=== PATIENT | male | born 1985 | race Caucasian/White ===

== ENCOUNTER → 2018-06-15 08:07 | Outpatient (CLI) | payer BC, SELFPAY ==
[2018-06-15 09:11] LABS: INR 3.8 (1.0-3.5); Prothrombin Time 35.7 sec (9.3-10.8)
== END ==
PROVIDERS: PCP Nurse Practitioner Family; Visit Provider Nurse Practitioner Family
DX: Z79.01 Long term (current) use of anticoagulants (principal)
CPT/HCPCS: 36415; 85610

== ENCOUNTER 2020-08-25 16:06 | Outpatient (REF) | payer BC, SELFPAY ==
[2020-08-25 19:36] LABS: Anion Gap 5.4 mmol/L (3-11); BUN 14 mg/dL (7-18); CO2 29.6 mmol/L (21.0-32.0); CREATININE 0.87 mg/dL (0.70-1.30); Calcium 9.1 mg/dL (8.5-10.1); Calculated LDL 139 mg/dL (<100); Chloride 103 mmol/L (98-107); Cholesterol 205 mg/dL (<200); Glucose 97 mg/dL (74-106); HDL Cholesterol 42 mg/dL (40-60); Potassium 4.7 mmol/L (3.5-5.1); Sodium 138 mmol/L (136-145); Triglyceride 120 mg/dL (<150)
== END 2020-08-25 16:26 ==
LOC: NCHCN 16:06
PROVIDERS: PCP Nurse Practitioner Family; Visit Provider Family Medicine
DX: Z00.00 Encounter for general adult medical examination without abnormal findings (principal); I42.0 Dilated cardiomyopathy; Z95.2 Presence of prosthetic heart valve; G43.909 Migraine, unspecified, not intractable, without status migrainosus
CPT/HCPCS: 80048; 80061

== ENCOUNTER 2022-06-14 17:27 | Outpatient (REF) | payer OTHER, SELFPAY ==
[2022-06-14 18:50] LABS: HCT 46.2 % (40.0-50.0); HGB 15.7 g/dL (13.5-17.5); MCH 30.7 pg (27.0-33.0); MCV 90 fL (80-95); Platelet Count 274 10^3/uL (130-400); RBC 5.11 10^6/uL (4.36-5.78); RDW 13.8 % (11.8-14.1); RDW-SD 46.2 fL; WBC 6.71 10^3/uL (4.4-10.8)
[2022-06-14 19:08] LABS: Anion Gap 9.3 mmol/L (3-11); BUN 11 mg/dL (7-18); CO2 28.7 mmol/L (21.0-32.0); CREATININE 0.9 mg/dL (0.70-1.30); Calcium 9.1 mg/dL (8.5-10.1); Chloride 102 mmol/L (98-107); Glucose 96 mg/dL (74-106); Potassium 4.4 mmol/L (3.5-5.1); Sodium 140 mmol/L (136-145)
== END 2022-06-14 17:28 | disposition home or self-care (01) ==
LOC: NCHCN 17:27
PROVIDERS: PCP Nurse Practitioner Family; Visit Provider Family Medicine
DX: Z00.00 Encounter for general adult medical examination without abnormal findings (principal); I42.0 Dilated cardiomyopathy; Z79.01 Long term (current) use of anticoagulants
CPT/HCPCS: 80048; 85027

== ENCOUNTER 2022-06-28 01:04 | Outpatient (CLI) | payer OTHER, SELFPAY ==
--- NOTE | 2022-06-28 | DI.RAD_ITS ---
Exam(s) XR LUMBAR SPINE COMPLETE EXAM: XR LUMBAR SPINE COMPLETE CLINICAL HISTORY: BACK PAIN WITH RADICULOPATHY, M54.18. TECHNIQUE: 2D digital imaging was performed of the lumbar spine. Five images were obtained. AP, la teral, right oblique, left oblique and L5-S1 spot views were obtained. COMPARISON: No exams were available for comparison FINDINGS: BONES: No fracture or destructive lesion. Vertebral bodies are unremarkable. Mild degenerative change s of the L5-S1 facets. DISKS: Mild narrowing of the L5-S1 disc space. ALIGNMENT: Lumbar spinal alignment is within normal limits. No spondylolysis or spondylolisthesis. SOFT TISSUE: Normal. IMPRESSION: Mild degenerative changes at L5-S1. DATA REPOSITORY: RADIATION DOSE DELIVERED:
== END 2022-06-28 01:24 ==
PROVIDERS: PCP Nurse Practitioner Family; Visit Provider Family Medicine
DX: M47.817 Spondylosis without myelopathy or radiculopathy, lumbosacral region (principal)
CPT/HCPCS: 72110

== ENCOUNTER → 2024-04-18 00:19 | Outpatient (CLI) | payer OTHER, SELFPAY ==
--- NOTE | 2024-04-18 07:30 | DI.US_ITS ---
APPROVED REPORT EXAM: Comprehensive 2D, Doppler, and color-flow Echocardiogram Patient Location: Out-Patient Production Engineer Track: Maria Antonia Samuels RDCS (AE) Indications: Prosthetic heart valve in situ, h/o cardiomyopathy Other Information Study Quality: Adequate Conclusion Normal left ventricular wall thickness and chamber size. Ejection fraction is 55 to 60%. Wall motio n is normal Normal right ventricular size and function Both atria are normal in size There is a prosthetic aortic valve. Peak gradient is 30, mean 17 mmHg. Trace aortic regurgitation Ascending aorta measures 3.59 cm Wall motion Left Ventricle The left ventricle is normal size. The left ventricular systolic function is normal. The left ventric ular ejection fraction is within the normal range. There is normal left ventricular wall thickness. T here is normal LV segmental wall motion. There is no ventricular septal defect visualized. LVEF is 56 %. Right Ventricle The right ventricle is normal size. The right ventricular systolic function is normal. Atria The left atrium size is normal. The right atrium size is normal. The interatrial septum is intact wit h no evidence for an atrial septal defect. Aortic Valve Peak gradient is 30, mean 17 mmHg. Trace aortic regurgitation. Prosthetic aortic valve is normal in a ppearance. Mitral Valve The mitral valve is normal in structure. No evidence of mitral valve stenosis. Trace mitral regurgita tion. Tricuspid Valve The tricuspid valve is normal in structure. There is no tricuspid valve stenosis. Trace tricuspid reg urgitation. The RVSP is 14.2_ mmHg. Pulmonic Valve The pulmonary valve is normal in structure. There is no pulmonic valvular stenosis. Trace pulmonic re gurgitation. Great Vessels The aortic root is normal in size. The ascending aorta is mildly dilated. Aortic arch is normal in ca liber. IVC is normal in size and collapses >50% with inspiration. Pericardium There is no pericardial effusion. 2D Dimensions IVSD d PLAX 0.65 cm M: 0.6-1.2 Ao Root d 3.08 cm M: 3.1 - 3.7 LVPW d PLAX 0.68 cm M: 0.6 - 1.2 Ao Asc Diam d 3.59 cm M: 2.6 - 3.4 LVID d PLAX 5.64 cm M: 4.2 - 5.8 LVDs 3.95 cm M: 2.5 - 4.0 LV EF Teichholz 56.4 % FS 29.91 % LV EDV (Teich) 156.0 mL LV ESV (Teich) 68.0 mL Auto EF LV EDV A4C 127.3 mL LV EDV A2C 156.0 mL LV EDV BP 141.8 mL LV ESV A4C 57.5 mL LV ESV A2C 65.9 mL LV ESV BP 62.1 mL LVEF(%) A4C 54.9 % LVEF(%) A2C 57.8 % LVEF(%) BP 56.2 % LV SV A4C 69.9 ml LV SV A2C 90.2 ml LV SV BP 79.7 ml LV CO A4C 4.9 L/min LV CO A2C 6.3 L/min LV CO BP 5.6 L/min HR A4C 70.04 BPM HR A2C 70.04 BPM LV EDV Index (BP) LA Volume LA Length A4C 5.1 cm LA Length A2C 5.0 cm LA Area A4C s 17.01 cm2 LA Area A2C s 18.75 cm2 LA Vol A4C A-L 48.33 mL LA Vol A2C A-L 59.28 mL LA Vol Biplane A-L 53.8 mL LA Vol/BSA A4C A-L LA Vol/BSA A2C A-L LA Vol/BSA BP A-L 26.6 mL/m2 LA Vol A4C MOD 44.1 mL LA Vol A2C MOD 56.5 mL LA Vol BP MOD 49.9 mL RA Volume RA Area A4C 16.3 cm2 RA ESV A4C (A-L) 46.9mL RA Vol/BSA A4C A-L RA Length A4C 4.8 cm RA ESV A4C (MOD) 44.7mL LV Diastology MV E' medial 0.120 (>0.07 m/s) MV E Vmax 0.67 (0.4-1.3 m/s) MV E/E' MED 5.53 (<14) MV A Vmax 0.65 (0.4-1.3 m/s) E/A Ratio 1.0 Aortic Valve AoV Vmax 2.73 m/s LVOT Vmax 0.52 m/s AoV Peak Grad 29.8 mmHg LVOT Peak Grad 1.1 mmHg AoV Area (Vmax) 0.61 cm2 LVOT VTI 0.132 m AoV VTI 0.629 m LVOT Mean Grad 0.7 mmHg AoV Mean Braeden. 1.95 m/s LVOT SV 42.08 mL AoV Mean Grad 17.6 mmHg LVOT Diam s 2.00 cm AoV Area (VTI) 0.67 cm2 Velocity Ratio 0.19 Mitral Valve MV DT 175 (160-240 msec) MV Vmax TIPS 0.56 m/s MV Mean Grad 0.6 (<2mmHg) MV VTI 0.193 m Pulmonary Valve PV Vmax 1.31 (0.5-1.5 m/s) RVOT Vmax 0.71 m/s PV Peak Grad 6.9 mmHg RVOT Peak Gr. 2.0 mmHg PV Mean Braeden 0.86 m/s RVOT VTI 0.153 m PV Mean Grad 3.5 mmHg RVOT Mean Gr. 1.1 mmHg Tricuspid Valve RA Pressure 3.00 mmHg TR Vmax 1.67 m/s TV S' 0.09 m/s TR Peak Grad 11.2 mmHg RVSP (TR) 14.2 mmHg
== END ==
PROVIDERS: PCP Family Medicine; Visit Provider Family Medicine
DX: Z95.2 Presence of prosthetic heart valve (principal)
CPT/HCPCS: 93306

== ENCOUNTER 2024-08-16 12:28 | Outpatient (REF) | payer SELFPAY ==
--- OUTSIDE RECORDS SUMMARY | 2024-08-16 12:29 | XMS_ITS | Encounter Summary ---
Author Organization [facility] [place] [address] Care Team Providers Care Technical Architect Name Role Phone Kathy Valera MD Primary Care Provider [phone] Encounter Details Date Type Department Care Team (Late st Contact Info) Description 07/03/2024 Abstract Cardiology at [address] [phone] Varinder Cabrera RN Social History Tobacco Use Types Packs/Day Years Used Date Smoking Tobacco: Never Assessed Sex and Gender Information Value Date Recorded Sex Assigned at Not on file Gender Identity Not on file Sexual Orientation Not on file documented as of this encounter Plan of Treatment Not on file documented as of this encounter Visit Diagnoses Not on filedocumented in this encounter Care Teams Technical Architect Relationship Specialty Start Date End Date Kathy Valera MD [address] [place] [address] PCP - General Family Medicine 03/21/24 documented as of this encounter
--- OUTSIDE RECORDS SUMMARY | 2024-08-16 12:29 | XMS_ITS | Encounter Summary ---
Author Organization [facility] Address [facility] [place] [address] Care Team Providers Care Manager Research Name Role Phone Kathy Valera MD Primary Care Provider [phone] Encounter Details Date Type Department Care Team (Late st Contact Info) Description 07/08/2024 Telephone Cardiology at [address] [phone] Gallo Forbes MD [facility] [place] [address] Social History Tobacco Use Types Packs/Day Years Used Date Smoking Tobacco: Never Assessed Sex and Gender Information Value Date Recorded Sex Assigned at Not on file Gender Identity Not on file Sexual Orientation Not on file documented as of this encounter Miscellaneous Notes * Telephone Encounter - Glendy Galeano RN - 07/08/2024 9:06 AM EDT Images from the original note were not included. [facility] Cardiology Clinic [address] [place] [id number] Abilio was referred to this Cardiology clinic by PCP Kathy Valera. He has history of aortic valve replacement at [facility]. NEW PATIENT appointment was scheduled for today at 8:20 am. Abilio did not show or call. Abilio had not responded to telephonic reminder calls. Abilio was mailed an appointment reminder 3 weeks ago. Notification: Dr. Valera needs to know he did not present to his appointment on 07/08/2024. documented in this encounter Plan of Treatment Not on file documented as of this encounter Visit Diagnoses Not on filedocumented in this encounter Care Teams Manager Research Relationship Specialty Start Date End Date Kathy Valera MD [address] [place] [address] PCP - General Family Medicine 03/21/24 documented as of this encounter
--- OUTSIDE RECORDS SUMMARY | 2024-08-16 12:29 | XMS_ITS | Clinical Summary ---
Author Organization [facility] Address [facility] [place] [address] Care Team Providers Care Chief Engineer Production Name Role Phone Kathy Valera MD Primary Care Provider [phone] Medications Medication Sig Dispensed Refills Start Date End Date Status warfarin (COUMADIN) 5 mg tablet Take 7.5 mg by mouth daily. 08/09/2007 Active SUMATRIPTAN SUCCINATE (IMITREX ORAL) 09/23/2004 Active famotidine (Pepcid) 20 mg tablet Take 20 mg by mouth 2 times daily as needed. Active amoxicillin (Amoxil) 500 mg tablet Take 2,000 mg by mouth once as needed (dental procedure). Active losartan (Cozaar) 50 mg tablet Take 100 mg by mouth daily. Active metoprolol succinate XL (Toprol-XL) 200 mg ER 24 hr tablet Take 200 mg by mouth daily. Active Active Problems Problem Noted Date Diagnosed Date Dilated cardiomyopathy 07/03/2024 Presence of prosthetic heart valve 03/21/2024 Overview (03/21/2024): Aortic valve replacement Encounters Date Type Department Care Team Description 07/08/2024 Telephone Cardiology at [address] [phone] Gallo Forbes MD 07/03/2024 Abstract Cardiology at [address] [phone] Varinder Cabrera RN from Last 3 Months Family History Medical History Relation Comments Cardiomyopathy Father Heart Transplant Father Asthma Mother Arrhythmia Sister 1 Cardiomyopathy Sister 1 No Known Problems Sister 2 No Known Problems Sister 3 No Known Problems Sister 4 Relation Status Comments Father Maternal Grandfather Maternal Grandmother Alive Mother Paternal Grandfather Paternal Grandmother Alive Sister 1 Alive Sister 2 Alive Sister 3 Alive Sister 4 Alive Social History Tobacco Use Types Packs/Day Years Used Date Smoking Tobacco: Never Assessed Sex and Gender Information Value Date Recorded Sex Assigned at Not on file Gender Identity Not on file Sexual Orientation Not on file Plan of Treatment Health Maintenance Due Date Last Done Comments HIV screen 2003 Hepatitis C Screening 2003 Lipid Screening 2003 Hepatitis B vaccine (0-59 yrs) (1) 2004 Tetanus/Diphtheria/Pertussis Vaccines (1 - Tdap) 08/25 Covid-19 Vaccine ( - season) 2024 Influenza (Flu) vaccine (1 o f 1 - Influenza standard series) 06/23/2024 Care Teams Chief Engineer Production Relationship Specialty Start Date End Date Kathy Valera MD [address] [place] [address] PCP - General Family Medicine 03/21/24
--- OUTSIDE RECORDS SUMMARY | 2024-08-16 12:30 | XMS_ITS | Encounter Summary ---
Author Organization [facility] Address [address] [place] [address] Care Team Providers Care Engagement Executive Name Role Phone Kathy Valera MD Primary Care Provider [phone] Reason for Visit * Reason Onset Date Comments Other 03/14/2011 authorization fo r driving vehicle Encounter Details Date Type Department Care Team (Late st Contact Info) Description 03/14/2011 Telephone [facility] Cardiology - [address] [place], [place] [id number] Zee Estrella RN Other (authorization for driving vehicle) Social History Tobacco Use Types Packs/Day Years Used Date Smoking Tobacco: Never Alcohol Use Standard Drinks/Week Comments Not Asked 0 (1 standard drink = 0.6 oz pur e alcohol) Sex and Gender Information Value Date Recorded Sex Assigned at Not on file Gender Identity Not on file Sexual Orientation Not on file documented as of this encounter Miscellaneous Notes * Telephone Encounter - Roseann Carr - 03/17/2011 1436 EDT Left message to patient that letter has been sent. * Telephone Encounter - Zee Estrella RN - 03/14/2011 [address]1 [address]T Fax[address] note from Dr Villalta to [facility] at [facility], fax [phone]. documented in this encounter Plan of Treatment Not on file documented as of this encounter Visit Diagnoses Not on filedocumented in this encounter Care Teams Engagement Executive Relationship Specialty Start Date End Date Berrian, Kathy, MD [address] [place] [id number] PCP - General 12/10/09 documented as of this encounter
--- OUTSIDE RECORDS SUMMARY | 2024-08-16 12:30 | XMS_ITS | Encounter Summary ---
Author Organization [facility] Address [address] [place] [address] Care Team Providers Care Desktop Publishing Specialist Name Role Phone Kathy Valera MD Primary Care Provider Encounter Details Date Type Department Care Team (Late st Contact Info) Description 03/05/2010 Abstract [facility] Cardiology - [address] [place] [address] Kathy Valera MD [address] [place], [place] [id number] S/P aortic valve replacement Social History Tobacco Use Types Packs/Day Years Used Date Smoking Tobacco: Never Assessed Sex and Gender Information Value Date Recorded Sex Assigned at Not on file Gender Identity Not on file Sexual Orientation Not on file documented as of this encounter Plan of Treatment Not on file documented as of this encounter Visit Diagnoses Diagnosis S/P aortic valve replacement Heart valve replaced by other means documented in this encounter Historical Medications * This list may reflect changes made after this encounter. Medication Sig Dispensed Refills Start Date End Date WARFARIN SODIUM (COUMADIN ORAL) Take by mouth. As directed metoprolol XL (TOPROL-XL) 50 mg tablet Take 50 mg by mouth daily. 03/09/2010 lisinopril (PRINIVIL, ZESTRIL) 10 mg tablet Take 10 mg by mouth daily. 06/22/2010 added in this encounter Care Teams Desktop Publishing Specialist Relationship Specialty Start Date End Date Kathy Valera MD [address] [place], [place] [id number] PCP - General 12/10/09 documented as of this encounter
--- OUTSIDE RECORDS SUMMARY | 2024-08-16 12:30 | XMS_ITS | Encounter Summary ---
Author Organization [facility] Address [address] [place] [address] Care Team Providers Care Real Estate Paralegal Name Role Phone Kathy Valera MD Primary Care Provider [phone] Encounter Details Date Type Department Care Team (Late st Contact Info) Description 03/12/2011 Documentation Visit [facility] Cardiology - [address] [address] Dayton Villalta MD [address] [place] [address] Social History Tobacco Use Types Packs/Day Years [...] documented as of this encounter Visit Diagnoses * Evaluation - Dayton Villalta MD - 03/17/2011 1414 EDT RE: NAME: GUERA NORWOOD : 1985 NEW PATIENT EVALUATION - 03/12/2011 Occupational [facility] Services [facility] To Whom It May Concern: Guera Norwood is a 25-year-old gentleman and a patient of mine. I have followed him for many years. It is my opinion that he can be medically cleared for driving. If you have any questions or concerns, please feel free to contact me. I can be reached at [phone]. Sincerely, Electronically Signed by Dayton Villalta MD, FACC 03/17/2011 14:14 Dayton Villalta MD, [facility] - Dayton Villalta MD, [facility] - [facility] Job ID: SM Doc ID: [id number] Ext Doc ID: [id number] cc: Occupational Health Services* documented in this encounter Care Teams Real Estate Paralegal Relationship Specialty Start Date End Date Kathy Valera MD [address] [place] [id number] PCP - General 12/10/09 documented as of this encounter
--- OUTSIDE RECORDS SUMMARY | 2024-08-16 12:30 | XMS_ITS | Encounter Summary ---
Author Organization [facility] Address [address] [place] [address] Care Team Providers Care Roll Contour Grinder Name Role Phone Kathy Valera MD Primary Care Provider Reason for Referral * Cardiology (Routine) - Closed Specialty Diagnoses / Procedures Referred By Karlee t Referred To Contact Diagnoses Bicuspid aortic valve Procedures ECHOCARDIOGRAM Dayton Villalta MD [address] [facility] [address] [place] [id number] Referral ID Status Reason Start Date Expiration Date Visits Re quested Visits Authorized [id number] Closed 02/22/2018 1 1 Reason for Visit * Reason Onset Date Comments Other 02/22/2018 bicuspid aortic valve Encounter Details Date Type Department Care Team (Late st Contact Info) Description 02/22/2018 Orders Only [facility] Cardiology - [facility] [address] [place] [address] Zee Estrella RN Bicuspid aortic valve (Primary Dx) Social History Tobacco Use Types Packs/Day Years Used Date Smoking Tobacco: Never Smokeless Tobacco: Never Alcohol Use Standard Drinks/Week Comments Not Asked 0 (1 standard drink = 0.6 oz pur e alcohol) Sex and Gender Information Value Date Recorded Sex Assigned at Not on file Gender Identity Not on file Sexual Orientation Not on file documented as of this encounter Plan of Treatment Not on file documented as of this encounter Procedures Procedure Name Priority Date/Time Associated Diagnosis Comments ECHOCARDIOGRAM Routine 03/06/2018 14:43 EDT Bicuspid aortic valve documented in this encounter Results * ECHOCARDIOGRAM (03/06/2018 14:43 EDT) Anatomical Region Laterality Modality Other 03/06/2018 14:4 3 EDT Narrative 03/06/2018 15:01 EDT *Interpreting Group:* *[facility]* [address] [place] [address] Date of study: 03/06/2018 Transthoracic Echocardiography M-mode, complete 2D, complete spectral Doppler, and color Doppler *STUDY CONCLUSIONS* Summary: 1. Left ventricle: The cavity size was at the upper limits of normal. ?? Wall thickness was normal. Systolic function was normal. The ?? estimated ejection fraction was 55%. Wall motion was normal; there ?? were no regional wall motion abnormalities. 2. Right ventricle: The cavity size was normal. Wall thickness was ?? normal. Systolic function was normal. 3. Ventricular septum: Septal motion showed paradoxical motion ?? consistent with post surgery. 4. Left atrium: The atrium was normal in size. 5. Right atrium: The atrium was normal in size. 6. Aortic valve: A mechanical prosthesis was present. There was no ?? significant regurgitation. Mean gradient (S): 27mm Hg. Peak gradient ?? (S): 39mm Hg. 7. Pulmonary arteries: Systolic pressure could not be accurately ?? estimated. 8. Inferior vena cava: The vessel was normal in size. The respirophasic ?? diameter changes were in the normal range (greater than or equal to ?? 50%), consistent with normal central venous pressure. *PATIENT PRESENTATION* Height: ? 180.3cm ((71in) ) S/D Pressure: 104 / 64 Weight: ? 70.3kg ((154.7lb) ) BSA: ?1.87m^2 Test start time: ??02:11 PM. Test stop time: ??02:38 PM. ATTENDING ?Dayton Villalta MD ORDERING ? Dayton Villalta MD PAPER MACHINE TENDER ??Emi Landeros [facility] REFERRING ?Kathy Valera PERFORMING ?? [facility], PAPER MACHINE TENDER ??Lindy Navarro *PROCEDURE DATA* Procedure information: ??The patient was identified by two identifiers. This study was interpreted by [facility]. Pertinent images and digital data are archived for permanent storage and are available for subsequent review. ??Study status: Routine. Transthoracic echocardiography. ??M-mode, complete 2D, complete spectral Doppler, and color Doppler. A Transthoracic Echocardiogram was performed. Scanning was performed from the parasternal, apical, subcostal, and suprasternal notch acoustic windows. Images were obtained using an Polar OLEDq 12 cardiac ultrasound machine. Image quality was adequate. Study completion: ??The patient tolerated the procedure well. There were no complications. *INDICATIONS AND HISTORY* Indications: ?? 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 *CARDIAC ANATOMY* Left ventricle: ??The cavity size was at the upper limits of normal. Wall thickness was normal. Systolic function was normal. The estimated ejection fraction was 55%. Wall motion was normal; there were no regional wall motion abnormalities. Aortic valve: ??A mechanical prosthesis was present. ??Doppler: ??There was no significant regurgitation. ?Mean gradient (S): 27mm Hg. Peak gradient (S): 39mm Hg. Aorta: ??Aortic root: The aortic root was normal in size. Mitral valve: ?? Structurally normal valve. ?? Mobility was not restricted. ??Doppler: ??Transvalvular velocity was within the normal range. There was no evidence for stenosis. There was no significant regurgitation. Left atrium: ??The atrium was normal in size. Right ventricle: ??The cavity size was normal. Wall thickness was normal. Systolic function was normal. Ventricular septum: ?? Septal motion showed paradoxical motion consistent with post surgery. Pulmonic valve: ?Doppler: ??Transvalvular velocity was within the normal range. There was no evidence for stenosis. There was no significant regurgitation. Tricuspid valve: ?? Structurally normal valve. ?Doppler: ??Transvalvular velocity was within the normal range. There was no evidence for stenosis. There was no significant regurgitation. Pulmonary artery: ?Systolic pressure could not be accurately estimated. Right atrium: ??The atrium was normal in size. Pericardium: ??There was no pericardial effusion. Systemic veins: Inferior vena cava: The vessel was normal in size. The respirophasic diameter changes were in the normal range (greater than or equal to 50%), consistent with normal central venous pressure. Measurements Left ventricle ? Value ?11/19/2013 Reference LV ID, ED, PLAX ?5.3 ?? cm ? 3.5 - 6.0 LV ID, ES, PLAX ?4.0 ?? cm ? 2.1 - 4.0 LV PW thickness, ED, PLAX ?0.7 ?? cm ? LV end-diastolic volume, 1-p ? 138 ?? ml ? A2C LV ejection fraction, 1-p ?53 ?% ? A2C LV end-diastolic volume, 1-p ? 137 ?? ml ? 111 ? A4C LV ejection fraction, 1-p ?61 ?% ?48 ? A4C LV IVRT, DP ?63 ?ms ? 85 ? 60 - 100 LV e', lateral ? 0.137 m/sec ??0.065 ? LV E/e', lateral ? 6 ?10 ? LV e', medial ?0.07 ??m/sec ?? LV E/e', medial ?11 ? LV e', average ? 0.103 m/sec ?? LV E/e', average ? 8 ? Ventricular septum ? Value ?11/19/2013 Reference IVS thickness, ED, PLAX ?0.5 ?? cm ? LVOT ? Value ?11/19/2013 Reference LVOT ID, S ? 1.9 ?? cm ? LVOT area ?2.8 ?? cm^2 ?? LVOT peak velocity, S ?0.79 ??m/sec ?? LVOT mean velocity, S ?0.64 ??m/sec ?? LVOT VTI, S ?13.0 ??cm ? LVOT mean gradient, S ?1 ? mm Hg ?? Stroke volume (SV), LVOT DP ?48 ?ml ? Stroke index (SV/bsa), LVOT ?26 ?ml/m^2 DP Aortic valve ? Value ?11/19/2013 Reference Aortic valve peak velocity, ?3.1 ?? m/sec ??3.1 ? S Aortic valve mean velocity, ?2.53 ??m/sec ??2.4 ? S Aortic valve VTI, S ?76.3 ??cm ? 60.4 ? Aortic mean gradient, S ?27 ?mm Hg ??26 ? Aortic peak gradient, S ?39 ?mm Hg ??39 ? Aorta ?Value ?11/19/2013 Reference Ascending aorta ID, A-P ?3.3 ?? cm ? Ascending aorta ID, A-P, S ? 3.3 ?? cm ? 3.2 ? Left atrium ?Value ?11/19/2013 Reference LA ID, A-P, ES ? 2.9 ?? cm ? 3.6 ? LA ID/bsa, A-P ? 1.5 ?? cm/m^2 1.9 ?<=2.2 LA area, ES, A4C ? 12.9 ??cm^2 ?? 8.8 - 23.4 LA area, ES, A2C ? 14 ?cm^2 ?? LA volume, ES, 2-p ? 33 ?ml ? LA volume/bsa, ES, 2-p ? 18 ?ml/m^2 Mitral valve ? Value ?11/19/2013 Reference Mitral E-wave peak velocity ?0.79 ??m/sec ??0.67 ? Mitral A-wave peak velocity ?0.53 ??m/sec ??0.54 ? Mitral deceleration time ? 169 ?? ms ? 155 ?150 - 230 Mitral E/A ratio, peak ? 1.5 ?1.2 ? Legend: (L) ??and ??(H) ??agustin values outside specified reference range. I have personally reviewed the images and have reviewed and edited the reported findings. Electronically signed by Dayton Villalta MD 03/06/2018 15:01 Procedure Note Dayton Villalta MD - 03/06/2018 *Interpreting Group:* *[facility]* [address] [place] [address] Date of study: 03/06/2018 Transthoracic Echocardiography M-mode, complete 2D, complete spectral Doppler, and color Doppler *STUDY CONCLUSIONS* Summary: 1. Left ventricle: The cavity size was at the upper limits of normal. Wall thickness was normal. Systolic function was normal. The estimated ejection fraction was 55%. Wall motion was normal; there were no regional wall motion abnormalities. 2. Right ventricle: The cavity size was normal. Wall thickness was normal. Systolic function was normal. 3. Ventricular septum: Septal motion showed paradoxical motion consistent with post surgery. 4. Left atrium: The atrium was normal in size. 5. Right atrium: The atrium was normal in size. 6. Aortic valve: A mechanical prosthesis was present. There was no significant regurgitation. Mean gradient (S): 27mm Hg. Peak gradient (S): 39mm Hg. 7. Pulmonary arteries: Systolic pressure could not be accurately estimated. 8. Inferior vena cava: The vessel was normal in size. The respirophasic diameter changes were in the normal range (greater than or equal to 50%), consistent with normal central venous pressure. *PATIENT PRESENTATION* Height: 180.3cm ((71in) ) S/D Pressure: 104 / 64 Weight: 70.3kg ((154.7lb) ) BSA: 1.87m^2 Test start time: 02:11 PM. Test stop time: 02:38 PM. ATTENDING Dayton Villalta MD ORDERING Dayton Villalta MD PAPER MACHINE TENDER Emi Landeros [facility] REFERRING Kathy Valera PERFORMING [facility], Op PAPER MACHINE TENDER Ramon Lindy *PROCEDURE DATA* Procedure information: The patient was identified by two identifiers. This study was interpreted by [facility]. Pertinent images and digital data are archived for permanent storage and are available for subsequent review. Study status: Routine. Transthoracic echocardiography. M-mode, complete 2D, complete spectral Doppler, and color Doppler. A Transthoracic Echocardiogram was performed. Scanning was performed from the parasternal, apical, subcostal, and suprasternal notch acoustic windows. Images were obtained using an Polar OLEDq 12 cardiac ultrasound machine. Image quality was adequate. Study completion: The patient tolerated the procedure well. There were no complications. 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 *CARDIAC ANATOMY* Left ventricle: The cavity size was at the upper limits of normal. Wall thickness was normal. Systolic function was normal. The estimated ejection fraction was 55%. Wall motion was normal; there were no regional wall motion abnormalities. Aortic valve: A mechanical prosthesis was present. Doppler: There was no significant regurgitation. Mean gradient (S): 27mm Hg. Peak gradient (S): 39mm Hg. Aorta: Aortic root: The aortic root was normal in size. Mitral valve: Structurally normal valve. Mobility was not restricted. Doppler: Transvalvular velocity was within the normal range. There was no evidence for stenosis. There was no significant regurgitation. Left atrium: The atrium was normal in size. Right ventricle: The cavity size was normal. Wall thickness was normal. Systolic function was normal. Ventricular septum: Septal motion showed paradoxical motion consistent with post surgery. Pulmonic valve: Doppler: Transvalvular velocity was within the normal range. There was no evidence for stenosis. There was no significant regurgitation. Tricuspid valve: Structurally normal valve. Doppler: Transvalvular velocity was within the normal range. There was no evidence for stenosis. There was no significant regurgitation. Pulmonary artery: Systolic pressure could not be accurately estimated. Right atrium: The atrium was normal in size. Pericardium: There was no pericardial effusion. Systemic veins: Inferior vena cava: The vessel was normal in size. The respirophasic diameter changes were in the normal range (greater than or equal to 50%), consistent with normal central venous pressure. Measurements Left ventricle Value 11/19/2013 Reference LV ID, ED, PLAX 5.3 cm 3.5 - 6.0 LV ID, ES, PLAX 4.0 cm 2.1 - 4.0 LV PW thickness, ED, PLAX 0.7 cm LV end-diastolic volume, 1-p 138 ml A2C LV ejection fraction, 1-p 53 % A2C LV end-diastolic volume, 1-p 137 ml 111 A4C LV ejection fraction, 1-p 61 % 48 A4C LV IVRT, DP 63 ms 85 60 - 100 LV e', lateral 0.137 m/sec 0.065 LV E/e', lateral 6 10 LV e', medial 0.07 m/sec LV E/e', medial 11 LV e', average 0.103 m/sec LV E/e', average 8 Ventricular septum Value 11/19/2013 Reference IVS thickness, ED, PLAX 0.5 cm LVOT Value 11/19/2013 Reference LVOT ID, S 1.9 cm LVOT area 2.8 cm^2 LVOT peak velocity, S 0.79 m/sec LVOT mean velocity, S 0.64 m/sec LVOT VTI, S 13.0 cm LVOT mean gradient, S 1 mm Hg Stroke volume (SV), LVOT DP 48 ml Stroke index (SV/bsa), LVOT 26 ml/m^2 DP Aortic valve Value 11/19/2013 Reference Aortic valve peak velocity, 3.1 m/sec 3.1 S Aortic valve mean velocity, 2.53 m/sec 2.4 S Aortic valve VTI, S 76.3 cm 60.4 Aortic mean gradient, S 27 mm Hg 26 Aortic peak gradient, S 39 mm Hg 39 Aorta Value 11/19/2013 Reference Ascending aorta ID, A-P 3.3 cm Ascending aorta ID, A-P, S 3.3 cm 3.2 Left atrium Value 11/19/2013 Reference LA ID, A-P, ES 2.9 cm 3.6 LA ID/bsa, A-P 1.5 cm/m^2 1.9 <=2.2 LA area, ES, A4C 12.9 cm^2 8.8 - 23.4 LA area, ES, A2C 14 cm^2 LA volume, ES, 2-p 33 ml LA volume/bsa, ES, 2-p 18 ml/m^2 Mitral valve Value 11/19/2013 Reference Mitral E-wave peak velocity 0.79 m/sec 0.67 Mitral A-wave peak velocity 0.53 m/sec 0.54 Mitral deceleration time 169 ms 155 150 - 230 Mitral E/A ratio, peak 1.5 1.2 Legend: (L) and (H) agustin values outside specified reference range. I have personally reviewed the images and have reviewed and edited the reported findings. Electronically signed by Dayton Villalta MD 03/06/2018 15:01 Dayton Villalta MD CARDIAC ECHO O RDERABLES documented in this encounter Visit Diagnoses Diagnosis Bicuspid aortic valve- Primary Congenital insufficiency of aortic valve documented in this encounter Care Teams Roll Contour Grinder Relationship Specialty Start Date End Date Kathy Valera MD [address] [place] [address] PCP - General 12/10/09 documented as of this encounter
--- OUTSIDE RECORDS SUMMARY | 2024-08-16 12:30 | XMS_ITS | Encounter Summary ---
Author Organization [facility] Address [address] [place] [address] Care Team Providers Care Extrusion Manager Name Role Phone Kathy Valera MD Primary Care Provider [phone] Reason for Visit * Reason Onset Date Comments Labs Only 03/18/2011 pt/INR Encounter Details Date Type Department Care Team (Late st Contact Info) Description 03/18/2011 Telephone [facility] Cardiology - [place] [address] Roseann Carr, RN Labs Only (pt/INR) Social History Tobacco Use Types Packs/Day Years [...] * Telephone Encounter - Roseann Carr - 03/28/2011 1127 EDT 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 * Telephone Encounter - Roseann Carr - 03/22/2011 0853 EDT Left message for patient to call back because [employer] needs INR value also. documented in this encounter Plan of Treatment Not on file documented as of this encounter Visit Diagnoses Not on filedocumented in this encounter Care Teams Extrusion Manager Relationship Specialty Start Date End Date Kathy Valera MD [address] [place] [address] PCP - General 12/10/09 documented as of this encounter
--- OUTSIDE RECORDS SUMMARY | 2024-08-16 12:30 | XMS_ITS | Encounter Summary ---
Author Organization [facility] Address [address] [place] [address] Care Team Providers Care Channel Cementer Insole Machine Name Role Phone Kathy Valera MD Primary Care Provider Reason for Visit * Reason Comments Other Aortic valve replace ment 2000. Metoprolol increased two mos ago. Follow up today. Is feeling better. Not sob as often Encounter Details Date Type Department Care Team (Latest Contact Info) Description 03/09/2010 10:30 EDT Office Visit [facility] Cardiology - [address] [place], [place] [id number] Dayton Villalta MD [address] [facility] [address] [place] [address] Bicuspid aortic valve; Dilated cardiomyopathy (CMS-HCC); Aortic valve disorders; S/P aortic valve replacement Social History Tobacco Use Types Packs/Day Years Used Date Smoking Tobacco: Never Alcohol Use Standard Drinks/Week Comments Not Asked 0 (1 standard drink = 0.6 oz pur e alcohol) Sex and Gender Information Value Date Recorded Sex Assigned at Not on file Gender Identity Not on file Sexual Orientation Not on file documented as of this encounter Last Filed Vital Signs Vital Sign Reading Time Taken Comments Blood Pressure 92/78 03/09/2010 1016 EDT Pulse 80 03/09/2010 1016 EDT pulse ra nges form 79-101 sitting in chair. Temperature - - Respiratory Rate - - Oxygen Saturation 100% 03/09/2010 1016 EDT Inhaled Oxygen Concentration - - Weight 68 kg (150 lb) 03/09/2010 1016 EDT Height 180.3 cm (5' 11) 03/09/2010 1016 EDT Body Mass Index 20.92 03/09/2010 1016 EDT documented in this encounter Ordered Prescriptions Prescription Sig Dispensed Refills Start Date End Da te metoprolol XL (TOPROL XL) 100 mg tablet Take 1 Tab by mouth daily. 30 Tab 5 03/09/2010 11/19/2013 documented in this encounter Progress Notes * Dayton Villalta MD - 03/14/2010 1905 EDT RE: NAME: GUERA NORWOOD : 1985 PROGRESS/FOLLOWUP NOTE - 03/09/2010 [facility] [address] [place] [address] To Whom It May Concern: On 03/09/2010, I had the pleasure of seeing Guera Norwood in followup in our cardiology office. I refer you to the note of 12/22/2009. At that time, I increased Guera's Toprol-XL to 50 mg daily because of a cardiomyopathy secondary to his previous aortic insufficiency. He is tolerating the medication well and has no complaints whatsoever. Medications: Coumadin as directed. Lisinopril 10 mg daily. Toprol-XL 50 mg daily. Allergies: None known. Objective: Well-appearing pleasant gentleman. Blood pressure 92/78, heart rate 80, oxygen saturation 100% on room air at rest, weight 68 kilograms, height 5 feet 11 inches, BMI 20.9. HEENT: Anictericsclera, normal conjunctiva. Lungs: clear to auscultation bilaterally with good air movement. Chest: Well-healed midline sternotomy. Cardiovascular: No jugulovenous distention. Auscultation: Normal first heart sound followed by a 2/6 mid-peaking honking quality crescendo-decrescendo murmur. The second heart sound is mechanical and crisp. There is no diastolic murmur, gallop or rub. Extremities: No clubbing, cyanosis or edema. Electrocardiogram: sinus rhythm at a rate of 84 beats per minute with nonspecific T-wave changes. Assessment and Plan: Guera Norwood is 24 years old and is status post aortic valve replacement with a [employer] mechanical prosthesis. This was because of a bicuspid aortic valve with severe aortic insufficiency. He has dilated cardiomyopathy with an ejection fraction of about 40%. I am going to increase his Toprol-XL to 100 mg daily. Ideally, I would like his resting heart rate less than 70 beats per minute. I plan to see him back in 3 months. Please contact me if you have questions or concerns. Sincerely, Electronically Signed by Dayton Villalta MD, [facility] 03/14/2010 19:05 Dayton Villalta MD, [facility] - Dayton Villalta MD, [facility] - LF Job ID: SM Doc ID: [id number] Ext Doc ID: [id number] cc: * Dayton Villalta MD - 03/09/2010 1055 EDT This office note has been dictated. documented in this encounter Miscellaneous Notes * Scanned Note-Null - Inpatient, Physician - 03/18/2010 1035 EDTAssociated Order(s): ECG REPORT - SCANNED documented in this encounter Plan of Treatment Not on file documented as of this encounter Procedures Procedure Name Priority Date/Time Associated Diagnosis Comments ECG REPORT - SCANNED 03/18/2010 10:35 EDT documented in this encounter Results * ECG REPORT - SCANNED (03/18/2010 10:35 EDT) 03/18/2010 10:3 5 EDT Narrative 03/18/2010 15:14 EDT Ordered by an unspecified provider. Transcriptions Inpatient, Physician - 03/18/2010 10:35 EDT Physician Inpatient MD PROCEDURE/MINOR S URGICAL ORDERABLES documented in this encounter Visit Diagnoses Diagnosis Bicuspid aortic valve Congenital insufficiency of aortic valve Dilated cardiomyopathy (HCC-CMS) Other primary cardiomyopathies Aortic valve disorders S/P aortic valve replacement Heart valve replaced by other means documented in this encounter Discontinued Medications Medication Sig Discontinue Reason Start Date End Da te metoprolol XL (TOPROL-XL) 50 mg tablet Take 50 mg by mouth daily. Alternate therapy 03/09/2010 documented as of this encounter Care Teams Channel Cementer Insole Machine Relationship Specialty Start Date End Date Kathy Valera MD [address] [place] [address] PCP - General 12/10/09 documented as of this encounter
--- OUTSIDE RECORDS SUMMARY | 2024-08-16 12:30 | XMS_ITS | Encounter Summary ---
Author Organization [facility] Address [address] [place] [address] Care Team Providers Care Pot Builder Name Role Phone Kathy Valera MD Primary Care Provider [phone] Reason for Visit * Reason Comments Follow-up Echo 2-3 months ago and med change. Doing well. Encounter Details Date Type Department Care Team (Late st Contact Info) Description 06/15/2010 11:30 EDT Office Visit [facility] Cardiology - [address] [address] Dayton Villalta MD [address] [place] [address] [address] [place] [address] Cardiomyopathy, nonischemic (CMS-HCC) (Primary Dx); Aortic valve disorders Social History Tobacco Use Types Packs/Day Years [...] Sign Reading Time Taken Comments Blood Pressure 104/66 06/15/2010 1120 EDT Pulse 76 06/15/2010 1120 EDT Temperature - - Respiratory Rate - - Oxygen Saturation 99% 06/15/2010 1120 EDT Inhaled Oxygen Concentration - - Weight 66.7 kg (147 lb) 06/15/2010 1120 EDT Height 180.3 cm (5' 11) 06/15/2010 1120 EDT Body Mass Index 20.5 06/15/2010 1120 EDT documented in this encounter Progress Notes * Dayton Villalta MD - 06/19/2010 1031 EDT RE: NAME: GUERA NORWOOD : 1985 PROGRESS/FOLLOWUP NOTE - 06/15/2010 [facility] [address] [place] [address] To Whom It May Concern: On 06/15/2010, I had the pleasure of seeing Guera Norwood in followup in our office. The last time I saw Guera, I increased his Toprol-XL from 50 to 100 mg daily because of a cardiomyopathy secondary to previous aortic insufficiency. He is tolerating the dosage increase. He has had no complications and actually feels better. In the office today, his blood pressure was 104/66, heart rate 76 and oxygen saturation 99%. I increased Guera's lisinopril from 10 to 20 mg daily and continued his Toprol- XL at 100 mg daily. He will continue on the Coumadin for his prosthetic St Greg aortic valve. I plan to see him back in 9 months, at which time we will perform an echocardiogram. Please contact me if you have any questions or concerns. Sincerely, Electronically Signed by Dayton Villalta MD, FACC 06/19/2010 10:30 Dayton Villalta MD, FAC - Dayton Villalta MD, FACC - MFS Job ID: Doc ID: [id number] Ext Doc ID: [id number] cc: [facility] [address] [facility] [address]* * Dayton Villalta MD - 06/15/2010 1309 EDT This office note has been dictated. documented in this encounter Plan of Treatment Not on file documented as of this encounter Procedures Procedure Name Priority Date/Time Associated Diagnosis Comments ECHOCARDIOGRAM Routine 05/03/2011 15:32 EDT Cardiomyopathy, nonischemic (CMS-HCC) Aortic valve disorders documented in this encounter Results * ECHOCARDIOGRAM (05/03/2011 15:32 EDT) Anatomical Region Laterality Modality Other 05/03/2011 15:3 2 EDT Narrative 05/03/2011 16:18 EDT *Interpreting Group:* *[facility]* [address] [place] [address] *STUDY CONCLUSIONS* Summary: 1. Left ventricle: The cavity size was mildly dilated. Wall thickness was ?? normal. Systolic function was at the lower limits of normal. The estimated ?? ejection fraction was 50%. Wall motion was normal; there were no regional ?? wall motion abnormalities. 2. Aortic valve: A mechanical prosthesis was present. Mean gradient: 29mm Hg ?? (S). Peak gradient: 44mm Hg (S). 3. Aortic root: The aortic root was normal in size. 4. Ascending aorta: The ascending aorta was normal in size. 5. Aortic arch: The aortic arch was normal in size. 6. Right ventricle: The cavity size was normal. Wall thickness was normal. ?? Systolic function was normal. *PATIENT PRESENTATION* Height: ? 180.3cm (71in ) S/D Pressure: 117 / 67 Weight: ? 68kg (149.7lb ) BSA: ?1.87m^2 Test start time: 03:09 PM. Test stop time: 03:30 PM. ATTENDING ?Dayton Villalta MD ORDERING ? Dayton Villalta MD REFERRING ?Dayton Villalta MD KILN LOADER ??Cira Bo RN [facility] REFERRING ?Kathy Valera PERFORMING ?? [facility], Op *PROCEDURE DATA* Procedure information: This study was interpreted by [facility] at [facility]. Comparison was made to the study of December 22, 2009. Study status: Routine. Transthoracic echocardiography. M-mode, complete 2D, complete spectral Doppler, and color Doppler. A Transthoracic Echocardiogram was performed. Scanning was performed from the parasternal, apical, and subcostal acoustic windows. Images were obtained using a Gousto 4 cardiac ultrasound machine. Study completion: The patient tolerated the procedure well. *INDICATIONS AND HISTORY* Indications: 424.1, Aortic Valve Disorder. 425.4, Cardiomyopathy. *CARDIAC ANATOMY* Left ventricle: The cavity size was mildly dilated. Wall thickness was normal. Systolic function was at the lower limits of normal. The estimated ejection fraction was 50%. Wall motion was normal; there were no regional wall motion abnormalities. Aortic valve: A mechanical prosthesis was present. Doppler: No regurgitation. Mean gradient: 29mm Hg (S). Peak gradient: 44mm Hg (S). Aorta: Aortic root: The aortic root was normal in size. Ascending aorta: The ascending aorta was normal in size. Aortic arch: The aortic arch was normal in size. Mitral valve: Structurally normal valve. Mobility was not restricted. Doppler: Transvalvular velocity was within the normal range. There was no evidence for stenosis. No regurgitation. Left atrium: The atrium was normal in size. Right ventricle: The cavity size was normal. Wall thickness was normal. Systolic function was normal. Pulmonic valve: ??Doppler: Transvalvular velocity was within the normal range. There was no evidence for stenosis. Tricuspid valve: Structurally normal valve. Doppler: Transvalvular velocity was within the normal range. No regurgitation. Pulmonary artery: The main pulmonary artery was normal-sized. Systolic pressure could not be accurately estimated. Right atrium: The atrium was normal in size. Pericardium: There was no pericardial effusion. Systemic veins: Inferior vena cava: The vessel was normal in size. *MEASUREMENT TABLES* 2D measurements ?Normal Aorta Root diameter, ED ?32.4 mm ? ------- Mid ascending aorta anterior-posterior diameter, ED ??32.2 mm ? 21-34 Left atrium Anterior-posterior dimension ES, PLAX ?34 mm ? 23- 38 Volume index, S ?27 ml/m^2 ------- M-mode measurements ?Normal Left ventricle LV internal dimension, ED ? *62.9 mm ? 37-56 LV internal dimension, ES ?41.1 mm ? ------- Fractional shortening ?35 % ?29-45 LV posterior wall, ED ? 8.5 mm ? 6-11 Ventricular septum Septal thickness, ED ?6.4 mm ? ------- Doppler measurements ? Normal Left ventricle IVRT ? *121 ms ? 60-100 Aortic valve Peak velocity, S ?333 cm/s ?? ------- VTI, S ? 69.7 cm ? ------- Mean gradient, S ? 29 mm Hg ??------- Peak gradient, S ? 44 mm Hg ??------- Mitral valve Peak E-wave velocity ? 94 cm/s ?? ------- Peak A-wave velocity ? 53 cm/s ?? ------- Deceleration time ? 167 ms ? 150-230 Peak E/A ratio ? 1.77 ?------- Legend: Mean values are shown as u=mean value. Asterisk (*) lewis values outside specified normal range. Electronically signed by Dayton Villalta MD [id number] Procedure Note 05/03/2011 *Interpreting Group:* *[facility]* [address] [place] [address] *STUDY CONCLUSIONS* Summary: 1. Left ventricle: The cavity size was mildly dilated. Wall thicknesswas normal. Systolic function was at the lower limits of normal. Theestimated ejection fraction was 50%. Wall motion was normal; there were noregional wall motion abnormalities. 2. Aortic valve: A mechanical prosthesis was present. Mean gradient: 29mmHg (S). Peak gradient: 44mm Hg (S). 3. Aortic root: The aortic root was normal in size. 4. Ascending aorta: The ascending aorta was normal in size. 5. Aortic arch: The aortic arch was normal in size. 6. Right ventricle: The cavity size was normal. Wall thickness wasnormal. Systolic function was normal. *PATIENT PRESENTATION* Height: 180.3cm (71in ) S/D Pressure: 117 / 67 Weight: 68kg (149.7lb ) BSA: 1.87m^2 Test start time: 03:09 PM. Test stop time: 03:30 PM. ATTENDING Dayton Villalta MD ORDERING Dayton Villalta MD REFERRING Dayton Villalta MD KILN LOADER Cira Bo RN RDSAVI REFERRING Kathy Valera PERFORMING Fa, Op *PROCEDURE DATA* Procedure information: This study was interpreted by [facility]. Comparison was made to the studyof December 22, 2009. Study status: Routine. Transthoracic echocardiography.M-mode, complete 2D, complete spectral Doppler, and color Doppler. ATransthoracic Echocardiogram was performed. Scanning was performed from theparasternal, apical, and subcostal acoustic windows. Images were obtained using Mediastream 4 cardiac ultrasound machine. Study completion: The patient tolerated the procedure well. *INDICATIONS AND HISTORY* Indications: 424.1, Aortic Valve Disorder. 425.4, Cardiomyopathy. *CARDIAC ANATOMY* Left ventricle: The cavity size was mildly dilated. Wall thickness wasnormal. Systolic function was at the lower limits of normal. The estimatedejection fraction was 50%. Wall motion was normal; there were no regional wallmotion abnormalities. Aortic valve: A mechanical prosthesis was present. Doppler: Noregurgitation. Mean gradient: 29mm Hg (S). Peak gradient: 44mm Hg (S). Aorta: Aortic root: The aortic root was normal in size. Ascending aorta: The ascending aorta was normal in size. Aortic arch: The aortic arch was normal in size. Mitral valve: Structurally normal valve. Mobility was not restricted.Doppler: Transvalvular velocity was within the normal range. There was no evidencefor stenosis. No regurgitation. Left atrium: The atrium was normal in size. Right ventricle: The cavity size was normal. Wall thickness was normal.Systolic function was normal. Pulmonic valve: Doppler: Transvalvular velocity was within the normalrange. There was no evidence for stenosis. Tricuspid valve: Structurally normal valve. Doppler: Transvalvularvelocity was within the normal range. No regurgitation. Pulmonary artery: The main pulmonary artery was normal-sized. Systolicpressure could not be accurately estimated. Right atrium: The atrium was normal in size. Pericardium: There was no pericardial effusion. Systemic veins: Inferior vena cava: The vessel was normal in size. *MEASUREMENT TABLES* 2D measurements Normal Aorta Root diameter, ED 32.4 mm ------- Mid ascending aorta anterior-posterior diameter, ED 32.2 mm 21-34 Left atrium Anterior-posterior dimension ES, PLAX 34 mm 23-38 Volume index, S 27 ml/m^2 ------- M-mode measurements Normal Left ventricle LV internal dimension, ED *62.9 mm 37-56 LV internal dimension, ES 41.1 mm ------- Fractional shortening 35 % 29-45 LV posterior wall, ED 8.5 mm 6-11 Ventricular septum Septal thickness, ED 6.4 mm ------- Doppler measurements Normal Left ventricle IVRT *121 ms 60-100 Aortic valve Peak velocity, S 333 cm/s ------- VTI, S 69.7 cm ------- Mean gradient, S 29 mm Hg ------- Peak gradient, S 44 mm Hg ------- Mitral valve Peak E-wave velocity 94 cm/s ------- Peak A-wave velocity 53 cm/s ------- Deceleration time 167 ms 150-230 Peak E/A ratio 1.77 ------- Legend: Mean values are shown as u=mean value. Asterisk (*) lewis values outside specified normal range. Electronically signed by Dayton Villalta MD [id number] Dayton Villalta MD CARDIAC ECHO O RDERAJOSE documented in this encounter Visit Diagnoses Diagnosis Cardiomyopathy, nonischemic (HCC-CMS)- Primary Other primary cardiomyopathies Aortic valve disorders documented in this encounter Care Teams Pot Builder Relationship Specialty Start Date End Date Kathy Valera MD [address] [place] [address] PCP - General 12/10/09 documented as of this encounter
--- OUTSIDE RECORDS SUMMARY | 2024-08-16 12:30 | XMS_ITS | Encounter Summary ---
Author Organization [facility] Address [address] [place] [address] Care Team Providers Care Collator Operator Name Role Phone Unavailable Primary Care Provider Unavailabl e Encounter Details Date Type Department Care Team (Latest Contact Info) Description 04/20/2001 7:58 EDT - 04/20/2001 11:59 EDT Hospital Encounter [facility] [address] [place] [address] Richard Gomes MD [address] [place] [id number] Discharge Disposition: Auto Discharge Social History Tobacco Use Types Packs/Day Years Used Date Smoking Tobacco: Never Assessed Sex and Gender Information Value Date Recorded Sex Assigned at Not on file Gender Identity Not on file Sexual Orientation Not on file documented as of this encounter Discharge Disposition Disposition Code Departure Means Destination Auto Discharge documented in this encounter Plan of Treatment Not on file documented as of this encounter Procedures Procedure Name Priority Date/Time Associated Diagnosis Comments CREATININE Routine 04/20/2001 8:13 EDT HEMAGRAM & DIFF Routine 04/20/2001 8:13 EDT SED RATE Routine 04/20/2001 8:13 EDT PROTIME Routine 04/20/2001 8:13 EDT BUN Routine 04/20/2001 8:13 EDT ELECTROLYTES Routine 04/20/2001 8:13 EDT documented in this encounter Results * (ABNORMAL) SED. RATE:WESTERGREN (04/20/2001 8:13 EDT) Sed. Rate Jan 67(H) 0 - 15 mm/hr [facility] 04/20/2001 8:13 EDT 04/20/2001 8:13 EDT Provider Unknown HEMATOLOGY & PF4 ORD ERABLES Performing Organization Address [facility] de Phone Number [facility] [address] [place] [address] * (ABNORMAL) PROTIME (04/20/2001 8:13 EDT) Pro Time 14.8(H) 11.3 - 13.1 secs [facility] I.N.R. 1.5(H) 0.8 - 1.2 Ratio [facility] Comment: Moderate Intensity Coumadin INR = 2.0-3.0 Adjustments in anticoagulant therapy dose should be based upon the INR and NOT the Pro Time. 04/20/2001 8:13 EDT 04/20/2001 8:13 EDT Provider Unknown HEMATOLOGY & PF4 ORD ERABLES Performing Organization Address [facility] Phone Number [facility] [address] [place] [address] * ELECTROLYTES (04/20/2001 8:13 EDT) Sodium 136 136 - 145 mEq/L [facility] Potassium 4.1 3.6 - 5.2 mEq/L [facility] Chloride 98 96 - 110 mEq/L [facility] CO2 25 24 - 30 mEq/L [facility] 04/20/2001 8:13 EDT 04/20/2001 8:13 EDT Provider Unknown CHEMISTRY & BLOOD GA S ORDERABLES Performing Organization Address [facility] de Phone Number [facility] [address] [place] [address] * CREATININE (04/20/2001 8:13 EDT) Creatinine 0.7 0.6 - 1.2 mg/dl [facility] 04/20/2001 8:13 EDT 04/20/2001 8:13 EDT Provider Unknown HISTORICAL LAB FOR S Q LOAD Performing Organization Address City/[facility] Co de Phone Number [facility] [address] [place] [address] * (ABNORMAL) HEMAGRAM & DIFF (04/20/2001 8:13 EDT) WBC 7.47 4.5 - 13.0 K/cmm [facility] RBC 3.10(L) 4.50 - 5.30 M/cmm [facility] Hemoglobin 9.2(L) 13.0 - 16.0 gm/dl [facility] HCT 27.6(L) 37.0 - 49.0 % [facility] MCV 89 78 - 98 fl [facility] MCH 29.8 pg [facility] MCHC 33.4 gm/dl [facility] PLT 434(H) 156 - 312 K/cmm [facility] RDW-CV 13.4 % [facility] % Neutrophils 72.2 % [facility] % Lymphocytes 19.5 % [facility] % Monocytes 5.1 % [facility] % Eosinophils 2.8 % [facility] % Basophils 0.4 % [facility] ABS Neutrophils 5.39 K/cmm [facility] ABS Lymphs 1.46 K/cmm [facility] ABS Monocytes 0.38 K/cmm [facility] ABS Eosinophils 0.21 K/cmm [facility] ABS Basophils 0.03 K/cmm [facility] Type of Diff: Automated [facility] 04/20/2001 8:13 EDT 04/20/2001 8:13 EDT Provider Unknown HISTORICAL LAB FOR S Q LOAD Performing Organization Address [facility] Co de Phone Number [facility] [address] [place] [address] * BUN (04/20/2001 8:13 EDT) BUN 14 8 - 21 mg/dl [facility] 04/20/2001 8:13 EDT 04/20/2001 8:13 EDT Provider Unknown CHEMISTRY & BLOOD GA S ORDERABLES Performing Organization Address City/State/[facility] Co de Phone Number [facility] [address] [place] [address] documented in this encounter Visit Diagnoses Not on filedocumented in this encounter
--- OUTSIDE RECORDS SUMMARY | 2024-08-16 12:30 | XMS_ITS | Encounter Summary ---
Author Organization [facility] Address [address] [place] [address] Care Team Providers Care Nuclear Supervising Operator Name Role Phone Unavailable Primary Care Provider Maksim e Encounter Details Date Type Department Care Team (Latest Contact Info) Description 05/23/2001 14:31 EDT Hospital Encounter [facility] [address] [place] [address] Jose Bejarano MD [address] [address] Gertrude Hamilton, ANP [address] [place] [phone] Discharge Disposition: Auto Discharge Social History Tobacco [...] Procedure Name Priority Date/Time Associated Diagnosis Comments CHEST PA AND LATERAL Routine 05/23/2001 15:21 EDT PROTIME Routine 05/23/2001 14:00 EDT documented in this encounter Results * CHEST PA AND LATERAL (05/23/2001 15:21 EDT) Anatomical Region Laterality Modality Other 05/23/2001 15:2 1 EDT Impressions 09/02/2009 0:55 EST IMPRESSION: 1. Status post AVR with clearing of the postop finding seen on our last study. D 05/23/01 T 05/24/01 /prachi Narrative 09/02/2009 0:55 EST S/P AORTIC VALVE REPLACEMENT R/O UNSTABLE STERNUM, PLEURAL EFFUSIONS SEND FILMS W/ PATIENT TO STEVEN 3 NEEDS EKG PA AND LATERAL CHEST 05/23/01, 1515 hours COMPARISON: 04/16/01 HISTORY: Status post aortic valve replacement; r/o unstable sternum and pleural effusion. FINDINGS: PA and lateral views of the chest show sternal sutures and prosthetic aortic valve. No change is noted since our last study. The cardiac silhouette is now of normal size. The lungs are clear. The pleural fluid seen on the last study has undergone complete resolution. Procedure Note Willy Reyna MD - 09/02/2009 S/P AORTIC VALVE REPLACEMENT R/O UNSTABLE STERNUM, PLEURAL EFFUSIONS SEND FILMS W/ PATIENT TO STEVEN 3 NEEDS EKG PA AND LATERAL CHEST 05/23/01, 1515 hours COMPARISON: 04/16/01 HISTORY: Status post aortic valve replacement; r/o unstable sternum and pleural effusion. FINDINGS: PA and lateral views of the chest show sternal sutures and prosthetic aortic valve. No change is noted since our last study. The cardiac silhouette is now of normal size. The lungs are clear. The pleural fluid seen on the last study has undergone complete resolution. IMPRESSION IMPRESSION: 1. Status post AVR with clearing of the postop finding seen on our last study. D 05/23/01 T 05/24/01 /prachi Jose Bejarano MD IMG DIAGNOSTIC IMAG ING ORDERABLES * (ABNORMAL) PROTIME (05/23/2001 14:00 EDT) Pro Time 13.8(H) 11.3 - 13.1 secs [facility] Comment:Patient on Coumadin I.N.R. 1.3(H) 0.8 - 1.2 Ratio [facility] Comment: Moderate Intensity Coumadin INR = 2.0-3.0 Adjustments in anticoagulant therapy dose should be based upon the INR and NOT the Pro Time. Patient on Coumadin 05/23/2001 14:0 0 EDT 05/23/2001 14:52 EDT Provider Unknown HEMATOLOGY & PF4 ORD ERABLES Performing Organization Address City/State/[facility] Co de Phone Number [facility] [address] [place] [address] documented in this encounter Visit Diagnoses Not on filedocumented in this encounter
--- OUTSIDE RECORDS SUMMARY | 2024-08-16 12:30 | XMS_ITS | Encounter Summary ---
Author Organization [facility] Address [address] [place] [address] Care Team Providers Care Fiberglass Quality Technician Name Role Phone Kathy Valera MD Primary Care Provider [phone] Encounter Details Date Type Department Care Team (Late st Contact Info) Description 06/10/2021 Orders Only [facility] Cardiology - [address] [place], [place] [id number] Paulino Contreras RN Aortic valve disorder (Primary Dx); Adult congenital heart disease Social History Tobacco Use Types Packs/Day Years Used Date Smoking Tobacco: Never Smokeless Tobacco: Never Alcohol Use Standard Drinks/Week Comments Not Asked 0 (1 standard drink = 0.6 oz pur e alcohol) Interpersonal Safety Answer Date Record ed Physically Hurt Never 05/24/2020 Verbally Threaten Not on file 05/24/2020 Sex and Gender Information Value Date Recorded Sex Assigned at Not on file Gender Identity Not on file Sexual Orientation Not on file documented as of this encounter Functional Status Functional Status Response Date of Assess ment Because of a physical, menta l, or emotional condition, does this person have difficulty doing errands alone such as visiting a doctor's office or shopping? No 03/06/2018 Cognitive Status Response Date of Assessm ent Because of a physical, menta l, or emotional condition, does this person have serious difficulty concentrating, remembering, or making decisions? 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
--- OUTSIDE RECORDS SUMMARY | 2024-08-16 12:30 | XMS_ITS | Encounter Summary ---
Author Organization [facility] [place] [address] [place] [address] Care Team Providers Care Abalone Fisherman Name Role Phone Kathy Valera MD Primary Care Provider [phone] Encounter Details Date Type Department Care Team (Late st Contact Info) Description 03/21/2024 Abstract Cardiology at [address] [phone] Glendy Galeano, RN Presence of prosthetic heart valve Social History Tobacco Use Types Packs/Day Years Used Date Smoking Tobacco: Never Assessed Sex and Gender Information Value Date Recorded Sex Assigned at Not on file Gender Identity Not on file Sexual Orientation Not on file documented as of this encounter Plan of Treatment Not on file documented as of this encounter Visit Diagnoses Diagnosis Presence of prosthetic heart valve Heart valve replaced by other means documented in this encounter Care Teams Abalone Fisherman Relationship Specialty Start Date End Date Kathy Valera MD [address] [place] [address] PCP - General Family Medicine 03/21/24 documented as of this encounter
--- OUTSIDE RECORDS SUMMARY | 2024-08-16 12:30 | XMS_ITS | Encounter Summary ---
Author Organization Formerly [facility] [address] Care Team Providers Care Reservoir Engineering Consultant Name Role Phone Kathy Valera MD Primary Care Provider [phone] Encounter Details Date Type Department Care Team (Late st Contact Info) Description 03/21/2024 Telephone Cardiology at [address] [phone] Glnedy Galeano, RN Social History Tobacco Use Types Packs/Day Years Used Date Smoking Tobacco: Never Assessed Sex and Gender Information Value Date Recorded Sex Assigned at Not on file Gender Identity Not on file Sexual Orientation Not on file documented as of this encounter Miscellaneous Notes * Telephone Encounter - Glendy Galeano, RN - 03/21/2024 11:05 AM EDT Images from the original note were not included. [facility] [address] [place] [id number] Abilio was referred to this Cardiology clinic by PCP Kathy Valera. He has history of aortic valve replacement at [facility]. Plan: records request from [facility] - for all cardiology procedures / heart surgeries between 10/23/2009 and 10/22/2023 And MOST RECENT only echocardiogram report, Chest imaging report, and cardiology office visit note. PCP has ordered an echocardiogram to be done at [facility]. No new symptoms or concerns were flagged in most recent annual exam - this echocardiogram is likelysurveillance post valve replacement surgery and long- term anticoagulation therapy.. . Active Ambulatory Problems Diagnosis Date Noted Presence of prosthetic heart valve 03/21/2024 Resolved Ambulatory Problems Diagnosis Date Noted No Resolved Ambulatory Problems Past Medical History: Diagnosis Date Aortic valve disease Dilated cardiomyopathy GERD without esophagitis Migraine Shoulder disorder, right Current medications . Current Outpatient Medications on File Prior to Visit Medication Sig Dispense Refill famotidine (Pepcid) 20 mg tablet Take 20 mg by mouth 2 times daily as needed. amoxicillin (Amoxil) 500 mg tablet Take 2,000 mg by mouth once as needed (dental procedure). losartan (Cozaar) 50 mg tablet Take 100 mg by mouth daily. metoprolol succinate XL (Toprol-XL) 200 mg ER 24 hr tablet Take 200 mg by mouth daily. warfarin (COUMADIN) 5 mg tablet Take 7.5 mg by mouth daily. [DISCONTINUED] metoprolol succinate (TOPROL XL) 25 mg 24 hr tablet 25mg, PO, Once daily [DISCONTINUED] lisinopril (PRINIVIL;ZESTRIL) 10 mg tablet 10mg, PO, QPM SUMATRIPTAN SUCCINATE (IMITREX ORAL) No current facility-administered medications on file prior to visit. 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 documented in this encounter Plan of Treatment Not on file documented as of this encounter Visit Diagnoses Not on filedocumented in this encounter Care Teams Reservoir Engineering Consultant Relationship Specialty Start Date End Date Kathy Valera MD [address] [place] [address] PCP - General Family Medicine 03/21/24 documented as of this encounter
--- OUTSIDE RECORDS SUMMARY | 2024-08-16 12:30 | XMS_ITS | Encounter Summary ---
Author Organization [facility] Address [address] [place] [address] Care Team Providers Care Client Development Director Name Role Phone Unavailable Primary Care Provider Unavailabl e Encounter Details Date Type Department Care Team (Late st Contact Info) Description 02/19/2002 14:30 EDT Hospital Encounter [facility] - [facility] [address] [place] [address] Dayton Villalta MD [address] [place] [address] [address] [place] [address] Unknown, Provider, Social History Tobacco Use Types Packs/Day Years [...] Procedure Name Priority Date/Time Associated Diagnosis Comments PROTIME Routine 02/19/2002 9:35 EDT documented in this encounter Results * (ABNORMAL) PROTIME (02/19/2002 9:35 EDT) Pro Time 21.1(H) 11.7 - 13.1 secs [facility] Comment:Patient on Coumadin I.N.R. 2.9(H) 0.8 - 1.2 Ratio [facility] Comment: Moderate Intensity Coumadin INR = 2.0-3.0 Adjustments in anticoagulant therapy dose should be based upon the INR and NOT the Pro Time. Patient on Coumadin 02/19/2002 9:35 EDT 02/19/2002 13:04 EDT Dayton Villalta MD HEMATOLOGY & P F4 ORDERABLES Performing Organization Address City/State/[facility] Co de Phone Number [facility] [address] [place] [address] documented in this encounter Visit Diagnoses Not on filedocumented in this encounter
--- OUTSIDE RECORDS SUMMARY | 2024-08-16 12:30 | XMS_ITS | Encounter Summary ---
Author Organization [facility] Address [address] [place] [address] Care Team Providers Care Gear Repairer Name Role Phone Unavailable Primary Care Provider Unavailabl e Encounter Details Date Type Department Care Team (Latest Contact Info) Description 04/13/2001 6:03 EDT - 04/17/2001 11:59 EDT Hospital Encounter [facility] Cardiothoracic Surgery Unit [address], [place] [address] Jose Bejarano MD [facility] [address] [id number] Discharge Disposition: Home-Health Care Svc Social History Tobacco Use Types Packs/Day Years Used Date Smoking Tobacco: Never Assessed Sex and Gender Information Value Date Recorded Sex Assigned at Not on file Gender Identity Not on file Sexual Orientation Not on file documented as of this encounter Discharge Disposition Disposition Code Departure Means Destination Home-Health Care Svc documented in this encounter Plan of Treatment Not on file documented as of this encounter Procedures Procedure Name Priority Date/Time Associated Diagnosis Comments PROTIME Routine 04/17/2001 7:20 EDT CREATININE Routine 04/16/2001 11:50 EDT HEMAGRAM & DIFF Routine 04/16/2001 11:50 EDT BUN Routine 04/16/2001 11:50 EDT POTASSIUM Routine 04/16/2001 11:50 EDT MAGNESIUM Routine 04/16/2001 11:50 EDT CHEST PA AND LATERAL Routine 04/16/2001 11:16 EDT PROTIME Routine 04/16/2001 7:05 EDT PTT Routine 04/15/2001 7:30 EDT PROTIME Routine 04/15/2001 7:30 EDT URINE MICROSCOPIC Routine 04/15/2001 3:2 4 EDT URINALYSIS WITH MICROSCOPIC IF POSITIVE Routine 04/15/2001 3:24 EDT BACTERIAL CULTURE, URINE Routine 04/15/2001 3:24 EDT BACTERIAL CULTURE, BLOOD Routine 04/15/2001 2:09 EDT BACTERIAL CULTURE, BLOOD Routine 04/15/2001 2:09 EDT PORTABLE CHEST 1 VIEW Routine 04/15/2001 1:50 EDT PORTABLE CHEST 1 VIEW Routine 04/14/2001 10:22 EDT CREATININE Routine 04/14/2001 3:43 EDT COMPLETE BLOOD COUNT Routine 04/14/2001 3:43 EDT BUN Routine 04/14/2001 3:43 EDT ELECTROLYTES Routine 04/14/2001 3:43 EDT COMPLETE BLOOD COUNT Routine 04/13/2001 17:08 EDT POTASSIUM Routine 04/13/2001 17:08 EDT BLOOD GASES Routine 04/13/2001 14:42 EDT BLOOD GASES Routine 04/13/2001 13:37 EDT PTT Routine 04/13/2001 13:31 EDT PROTIME Routine 04/13/2001 13:31 EDT PORTABLE CHEST 1 VIEW Routine 04/13/2001 13:15 EDT PTT Routine 04/13/2001 11:40 EDT PROTIME Routine 04/13/2001 11:40 EDT COMPLETE BLOOD COUNT Routine 04/13/2001 11:40 EDT POTASSIUM Routine 04/13/2001 11:40 EDT documented in this encounter Results * (ABNORMAL) PROTIME (04/17/2001 7:20 EDT) Pro Time 15.6(H) 11.3 - 13.1 secs [facility] I.N.R. 1.6(H) 0.8 - 1.2 Ratio [facility] Comment: Moderate Intensity Coumadin INR = 2.0-3.0 Adjustments in anticoagulant therapy dose should be based upon the INR and NOT the Pro Time. 04/17/2001 7:20 EDT 04/17/2001 7:37 EDT Jose Bejarano MD HEMATOLOGY & PF4 OR DERABLES Performing Organization Address [facility] de Phone Number [facility] [address] [place] [address] * MAGNESIUM (04/16/2001 11:50 EDT) Magnesium 1.6 1.4 - 2.3 meq/L [facility] 04/16/2001 11:5 0 EDT 04/16/2001 11:57 EDT Jose Bejarano MD CHEMISTRY & BLOOD G ORDERABLES Performing Organization Address [facility] de Phone Number [facility] [address] [place] [address] * (ABNORMAL) POTASSIUM (04/16/2001 11:50 EDT) Potassium 3.5(L) 3.6 - 5.2 mEq/L [facility] 04/16/2001 11:5 0 EDT 04/16/2001 11:57 EDT Jose Bejarano MD CHEMISTRY & BLOOD G ORDERABLES Performing Organization Address [facility] de Phone Number [facility] [address] [place] [address] * CREATININE (04/16/2001 11:50 EDT) Pathologist [facility] Creatinine 0.6 0.6 - 1.2 mg/dl [facility] 04/16/2001 11:5 0 EDT 04/16/2001 11:57 EDT Jose Bejarano MD HISTORICAL LAB FOR SQ LOAD Performing Organization Address [facility] de Phone Number [facility] [address] [place] [address] * (ABNORMAL) HEMAGRAM & DIFF (04/16/2001 11:50 EDT) Pathologist [facility] WBC 7.38 4.5 - 13.0 K/cmm [facility] RBC 2.63(L) 4.50 - 5.30 M/cmm [facility] Hemoglobin 7.9(LL) 13.0 - 16.0 gm/dl [facility] HCT 23.6(LL) 37.0 - 49.0 % [facility] MCV 90 78 - 98 fl [facility] MCH 30.0 pg [facility] MCHC 33.3 gm/dl [facility] PLT 139(L) 156 - 312 K/cmm [facility] RDW-CV 14.0 % [facility] % Neutrophils 82.7 % [facility] % Lymphocytes 12.0 % [facility] % Monocytes 4.7 % [facility] % Eosinophils 0.3 % [facility] % Basophils 0.3 % [facility] ABS Neutrophils 6.11 K/cmm [facility] ABS Lymphs 0.88 K/cmm [facility] ABS Monocytes 0.34 K/cmm [facility] ABS Eosinophils 0.02 K/cmm [facility] ABS Basophils 0.02 K/cmm [facility] Type of Diff: Automated [facility] 04/16/2001 11:5 0 EDT 04/16/2001 11:57 EDT Jose Bejarano MD HISTORICAL LAB FOR SQ LOAD Performing Organization Address [facility] de Phone Number [facility] [address] [place] [address] * BUN (04/16/2001 11:50 EDT) BUN 14 8 - 21 mg/dl [facility] 04/16/2001 11:5 0 EDT 04/16/2001 11:57 EDT Jose Bejarano MD CHEMISTRY & BLOOD G ORDERABLES Performing Organization Address [facility] de Phone Number [facility] [address] [place] [address] * CHEST PA AND LATERAL (04/16/2001 11:16 EDT) Anatomical Region Laterality Modality Other 04/16/2001 11:1 6 EDT Narrative 09/02/2009 3:11 EST AORTIC VALVE REPLACEMENT 04/13/01 R/O PLEURAL EFFUSION CHEST 04/16/2001 11:10 HISTORY: Aortic valve replacement. Rule out pleural effusion. COMPARISON: 04/15/2001. FINDINGS: PA and lateral views of the chest show sternal sutures, which appear unchanged since our earlier study. There has been interval removal of the mediastinal and right jugular line. The cardiac silhouette appears to be slightly enlarged. The lungs are clear. There is evidence of bilateral pleural effusion. /rml Procedure Note Willy Reyna MD - 09/02/2009 AORTIC VALVE REPLACEMENT 04/13/01 R/O PLEURAL EFFUSION CHEST 04/16/2001 11:10 HISTORY: Aortic valve replacement. Rule out pleural effusion. COMPARISON: 04/15/2001. FINDINGS: PA and lateral views of the chest show sternal sutures, which appear unchanged since our earlier study. There has been interval removal of the mediastinal and right jugular line. The cardiac silhouette appears to be slightly enlarged. The lungs are clear. There is evidence of bilateral pleural effusion. /formerly [facility] Jose Bejarano MD IMG DIAGNOSTIC IMAG ING ORDERABLES * (ABNORMAL) PROTIME (04/16/2001 7:05 EDT) Pro Time 13.5(H) 11.3 - 13.1 secs [facility] I.N.R. 1.2 0.8 - 1.2 Ratio [facility] Comment: Moderate Intensity Coumadin INR = 2.0-3.0 Adjustments in anticoagulant therapy dose should be based upon the INR and NOT the Pro Time. 04/16/2001 7:05 EDT 04/16/2001 7:12 EDT Jose Bejarano MD HEMATOLOGY & PF4 OR DERABLES Performing Organization Address [facility] de Phone Number [facility] [address] [place] [address] * PTT (04/15/2001 7:30 EDT) PTT 31 23 - 33 secs [facility] Comment:Therapeutic Heparin range: 58-100 seconds 04/15/2001 7:30 EDT 04/15/2001 7:47 EDT Jose Bejarano MD HEMATOLOGY & PF4 OR DERABLES Performing Organization Address [facility] de Phone Number [facility] [address] [place] [address] * (ABNORMAL) PROTIME (04/15/2001 7:30 EDT) Pro Time 14.1(H) 11.3 - 13.1 secs [facility] I.N.R. 1.3(H) 0.8 - 1.2 Ratio [facility] Comment: Moderate Intensity Coumadin INR = 2.0-3.0 Adjustments in anticoagulant therapy dose should be based upon the INR and NOT the Pro Time. 04/15/2001 7:30 EDT 04/15/2001 7:47 EDT Jose Bejarano MD HEMATOLOGY & PF4 OR DERABLES Performing Organization Address [facility] de Phone Number [facility] [address] [place] [address] * BACTERIAL CULTURE, URINE (04/15/2001 3:24 EDT) Specimen Description Urine [facility] Result No growth [facility] Report Status Final [id number] [facility] 04/15/2001 3:24 EDT 04/15/2001 9:05 EDT Jose Bejarano MD MICROBIOLOGY - GENE RAL ORDERABLES Performing Organization Address [facility] de Phone Number [facility] [address] [place] [address] * URINE MICROSCOPIC (04/15/2001 3:24 EDT) WBC, UA 1 to 5 0 - 5 /HPF [facility] RBC, UA 1 to 5 0 - 5 /HPF [facility] Squam Epithel, UA None seen NS /HPF [facility] Renal Epithel, UA None seen NS /HPF [facility] Bacteria, UA None seen NS /HPF [facility] Crystals, UA None seen /HPF [facility] Hyaline Casts, UA None seen /LPF [facility] UA Comment Microscopic results are unreliable on urines unrefrig >2hrs or refrig >8hrs. [facility] 04/15/2001 3:24 EDT 04/15/2001 3:24 EDT Jose Bejarano MD URINALYSIS ORDERABL ES Performing Organization Address [facility] de Phone Number [facility] [address] [place] [address] * (ABNORMAL) URINALYSIS (04/15/2001 3:24 EDT) Color, UA Yellow [facility] Clarity, UA Clear [facility] Glucose, UA Norm NORM [facility] Bilirubin, UA Neg NEG [facility] Ketones, UA Large(A) NEG [facility] Specific [place], Urine 1.020 1.005 - 1.02 [facility] Blood, UA Trace(A) NEG [facility] pH, UA 6.0 5.0 - 9.0 [facility] Protein, UA 1+(A) NEG [facility] Urobilinogen, UA Norm NORM mg/dL [facility] Nitrite, UA Neg NEG [facility] Leuk Esterase Small(A) NEG [facility] UA Comment Small sample, less than 12 ml received. [facility] 04/15/2001 3:24 EDT 04/15/2001 3:24 EDT Jose Bejarano MD URINALYSIS ORDERABL ES Performing Organization Address [facility]/ZIP Co de Phone Number [facility] [address] [place] [address] * BACTERIAL CULTURE, BLOOD (04/15/2001 2:09 EDT) Specimen Description Blood Left Arm [facility] Result No growth [facility] Report Status Final [id number] [facility] 04/15/2001 2:09 EDT 04/15/2001 7:18 EDT Jose Bejarano MD MICROBIOLOGY - GENE RAL ORDERABLES Performing Organization Address [facility]/ZIP Co de Phone Number [facility] [address] [place] [address] * BACTERIAL CULTURE, BLOOD (04/15/2001 2:09 EDT) Specimen Description Blood Left Hand [facility] Result No growth [facility] Report Status Final [id number] [facility] 04/15/2001 2:09 EDT 04/15/2001 7:18 EDT Jose Bejarano MD MICROBIOLOGY - GENE [facility] ORDERABLES [facility] [address] [place] [address] * PORTABLE CHEST 1 VIEW (04/15/2001 1:50 EDT) Anatomical Region Laterality Modality Other 04/15/2001 1:50 EDT Narrative 09/02/2009 2:00 EST S/P AVR WITH T 38 R/O ATELECTASIS VS. INFILTRATE 04-15-01 PORTABLE CHEST (0150 hrs): COMPARISON: 04-14-01. HISTORY: S/P aortic valve replacement with fever. The right internal jugular sheath and mediastinal drain remain. The exam shows evidence of sternal splitting procedure. The heart is at the upper limits of normal in size. The lungs show a resolving right lower and left lower lobe opacity which I believe reflects resolving areas of atelectasis. No new abnormalities are identified. D: 04-15-01 T: 04-18-01 /am Procedure Note Antonio Mcwilliams MD - 09/02/2009 S/P AVR WITH T 38 R/O ATELECTASIS VS. INFILTRATE 04-15-01 PORTABLE CHEST (0150 hrs): COMPARISON: 04-14-01. HISTORY: S/P aortic valve replacement with fever. The right internal jugular sheath and mediastinal drain remain. The exam shows evidence of sternal splitting procedure. The heart is at the upper limits of normal in size. The lungs show a resolving right lower and left lower lobe opacity which I believe reflects resolving areas of atelectasis. No new abnormalities are identified. D: 04-15-01 T: 04-18-01 /am Felix Alcazar MD IMG DIAGNOSTIC IMAG ING ORDERABLES * PORTABLE CHEST 1 VIEW (04/14/2001 10:22 EDT) Anatomical Region Laterality Modality Other 04/14/2001 10:2 2 EDT Narrative 09/02/2009 0:49 EST AVR -ST AGGIE VALVE R/O INFILTRATE PORTABLE CHEST, SINGLE VIEW, AP PROJECTION 04/14/2001 07:30 HISTORY: Status post aortic valve replacement. COMPARISON: 04/13/2001. FINDINGS: The exam shows mediastinal drain and [place]um catheter in position. The NG tube and ET tube have been removed. There is an abnormal opacity within the right lower lobe of lung with right diaphragmatic elevation consistent with incomplete right lower lobe atelectasis. No other significant abnormalities are noted. /formerly [facility] Procedure Note Antonio Mcwilliams MD - 09/02/2009 AVR -ST AGGIE VALVE R/O INFILTRATE PORTABLE CHEST, SINGLE VIEW, AP PROJECTION 04/14/2001 07:30 HISTORY: Status post aortic valve replacement. COMPARISON: 04/13/2001. FINDINGS: The exam shows mediastinal drain and [place] catheter in position. The NG tube and ET tube have been removed. There is an abnormal opacity within the right lower lobe of lung with right diaphragmatic elevation consistent with incomplete right lower lobe atelectasis. No other significant abnormalities are noted. /formerly [facility] Jose Bejarano MD IMG DIAGNOSTIC IMAG ING ORDERABLES * (ABNORMAL) ELECTROLYTES (04/14/2001 3:43 EDT) Sodium 135(L) 136 - 145 mEq/L [facility] Potassium 3.9 3.6 - 5.2 mEq/L [facility] Chloride 104 96 - 110 mEq/L [facility] CO2 26 24 - 30 mEq/L [facility] 04/14/2001 3:43 EDT 04/14/2001 3:43 EDT Jose Bejarano MD CHEMISTRY & BLOOD G ORDERABLES [facility] [address] [place] [address] * CREATININE (04/14/2001 3:43 EDT) Creatinine 0.7 0.6 - 1.2 mg/dl [facility] 04/14/2001 3:43 EDT 04/14/2001 3:43 EDT Jose Bejarano MD HISTORICAL LAB FOR SQ LOAD Performing Organization Address [facility] [[email or web address]] Co de Phone Number [facility] [address] [place] [address] * (ABNORMAL) HEMAGRAM (04/14/2001 3:43 EDT) WBC 8.58 4.5 - 13.0 K/cmm [facility] RBC 3.00(L) 4.50 - 5.30 M/cmm [facility] Hemoglobin 9.1(L) 13.0 - 16.0 gm/dl [facility] HCT 26.4(L) 37.0 - 49.0 % [facility] MCV 88 78 - 98 fl [facility] MCH 30.3 pg [facility] MCHC 34.4 gm/dl [facility] PLT 105(L) 156 - 312 K/cmm [facility] RDW-CV 13.9 % [facility] 04/14/2001 3:43 EDT 04/14/2001 3:43 EDT Jose Bejarano MD HEMATOLOGY & PF4 OR DERABLES Performing Organization Address [facility] de Phone Number [facility] [address] [place] [address] * BUN (04/14/2001 3:43 EDT) BUN 9 8 - 21 mg/dl [facility] 04/14/2001 3:43 EDT 04/14/2001 3:43 EDT Jose Bejarano MD CHEMISTRY & BLOOD G ORDERABLES Performing Organization Address [facility] de Phone Number [facility] [address] [place] [address] * POTASSIUM (04/13/2001 17:08 EDT) Potassium 4.2 3.6 - 5.2 mEq/L [facility] 04/13/2001 17:0 8 EDT 04/13/2001 17:08 EDT Jose Bejarano MD CHEMISTRY & BLOOD G ORDERABLES Performing Organization Address [facility] de Phone Number [facility] [address] [place] [address] * (ABNORMAL) HEMAGRAM (04/13/2001 17:08 EDT) WBC 12.96 4.5 - 13.0 K/cmm [facility] RBC 3.14(L) 4.50 - 5.30 M/cmm [facility] Hemoglobin 9.3(L) 13.0 - 16.0 gm/dl [facility] HCT 27.8(L) 37.0 - 49.0 % [facility] MCV 89 78 - 98 fl [facility] MCH 29.6 pg [facility] MCHC 33.5 gm/dl [facility] PLT 114(L) 156 - 312 K/cmm [facility] RDW-CV 13.5 % [facility] 04/13/2001 17:0 8 EDT 04/13/2001 17:08 EDT Jose Bejarano MD HEMATOLOGY & PF4 OR DERABLES Performing Organization Address [facility] de Phone Number [facility] [address] [place] [address] * (ABNORMAL) BLOOD GASES (04/13/2001 14:42 EDT) pH, arterial 7.33(L) 7.35 - 7.45 [facility] pCO2, arterial 46(H) 35 - 45 mmHg [facility] pO2, arterial 218(H) 85 - 100 mmHg [facility] TCO2 25 mEq/L [facility] Temperature 37.1 C [facility] O2 Saturation 99.4 % [facility] Oxygen Therapy 40 [facility]TC [facility] Base Deficit 2.2 INDRA R [facility] 04/13/2001 14:4 2 EDT 04/13/2001 14:42 EDT Jose Bejarano MD HISTORICAL LAB FOR SQ LOAD Performing Organization Address [facility] de Phone Number [facility] [address] [place] [address] * (ABNORMAL) BLOOD GASES (04/13/2001 13:37 EDT) pH, arterial 7.37 7.35 - 7.45 [facility] pCO2, arterial 41 35 - 45 mmHg [facility] pO2, arterial 261(H) 85 - 100 mmHg [facility] TCO2 25 mEq/L [facility] Temperature 36.1 C [facility] O2 Saturation 99.6 % [facility] Oxygen Therapy 50% [facility]UL[facility] Base Deficit 2.1 INDRA Burnette [facility] 04/13/2001 13:3 7 EDT 04/13/2001 13:37 EDT Jose Bejarano MD HISTORICAL LAB FOR SQ LOAD Performing Organization Address [facility] de Phone Number [facility] [address] [place] [address] * PTT (04/13/2001 13:31 EDT) PTT 31 23 - 33 secs [facility] Comment:Therapeutic Heparin range: 58-100 seconds 04/13/2001 13:3 1 EDT 04/13/2001 13:31 EDT Jose Bejarano MD HEMATOLOGY & PF4 OR DERABLES Performing Organization Address [facility] [[email or web address]] Co de Phone Number [facility] [address] [place] [address] * (ABNORMAL) PROTIME (04/13/2001 13:31 EDT) Pro Time 14.4(H) 11.3 - 13.1 secs [facility] I.N.R. 1.4(H) 0.8 - 1.2 Ratio [facility] Comment: Moderate Intensity Coumadin INR = 2.0-3.0 Adjustments in anticoagulant therapy dose should be based upon the INR and NOT the Pro Time. 04/13/2001 13:3 1 EDT 04/13/2001 13:31 EDT Jose Bejarano MD HEMATOLOGY & PF4 OR DERABLES [facility] [address] [place] [address] * PORTABLE CHEST 1 VIEW (04/13/2001 13:15 EDT) Anatomical Region Laterality Modality Other 04/13/2001 13:1 5 EDT Impressions 09/02/2009 0:48 EST IMPRESSION: #1: NG and [place]um to be repositioned. #2: Right lower lobe atelectasis, most likely from a mucous plug. However, if this opacity persists over repeated films, PA and lateral will have to be obtained. D: 04-13-01 T: 04-17-01 /am Narrative 09/02/2009 0:48 EST S/P AORTIC VALVE REPLACEMENT R/O MEDIASTINAL WIDENING 04-13-01 PORTABLE CHEST: I have no previous for comparison. [place] of NG tube is within distal esophagus. The NG tube should be pushed in a few centimeters. The tubes and drains are in adequate position. The tip of the [place] catheter appears to be projecting into the right lower lobe artery and should pulled back a few centimeters. Parenchyma shows increased opacity in the right lower lobe, with tenting of the right hemidiaphragm, which suggests a right lower lobe collapse. A nodular ill-defined opacity is also seen in the upper right lung area, likely in the upper lobe. Procedure Note P, M Hilton Max MD - 09/02/2009 S/P AORTIC VALVE REPLACEMENT R/O MEDIASTINAL WIDENING 04-13-01 PORTABLE CHEST: I have no previous for comparison. [place] of NG tube is within distal esophagus. The NG tube should be pushed in a few centimeters. The tubes and drains are in adequate position. The tip of the [place] catheter appears to be projecting into the right lower lobe artery and should pulled back a few centimeters. Parenchyma shows increased opacity in the right lower lobe, with tenting of the right hemidiaphragm, which suggests a right lower lobe collapse. A nodular ill-defined opacity is also seen in the upper right lung area, likely in the upper lobe. IMPRESSION IMPRESSION: #1: NG and [place] to be repositioned. #2: Right lower lobe atelectasis, most likely from a mucous plug. However, if this opacity persists over repeated films, PA and lateral will have to be obtained. D: 04-13-01 T: 04-17-01 /am Arnoldo Chencho DO IMG DIAGNOSTIC [facility] ORDERABLES * (ABNORMAL) PTT (04/13/2001 11:40 EDT) PTT >150(HH) 23 - 33 secs [facility] Comment:Therapeutic Heparin range: 58-100 seconds 04/13/2001 11:4 0 EDT 04/13/2001 11:41 EDT Jose Bejarano MD HEMATOLOGY & PF4 OR DERABLES Performing Organization Address [facility] de Phone Number [facility] [address] [place] [address] * (ABNORMAL) PROTIME (04/13/2001 11:40 EDT) Pro Time 16.9(H) 11.3 - 13.1 secs [facility] I.N.R. 1.9(H) 0.8 - 1.2 Ratio [facility] Comment: Moderate Intensity Coumadin INR = 2.0-3.0 Adjustments in anticoagulant therapy dose should be based upon the INR and NOT the Pro Time. 04/13/2001 11:4 0 EDT 04/13/2001 11:41 EDT Jose Bejarano MD HEMATOLOGY & PF4 OR DERABLES Performing Organization Address [facility] de Phone Number [facility] [address] [place] [address] * POTASSIUM (04/13/2001 11:40 EDT) Potassium 4.3 3.6 - 5.2 mEq/L [facility] 04/13/2001 11:4 0 EDT 04/13/2001 11:41 EDT Jose Bejarano MD CHEMISTRY & BLOOD G ORDERABLES Performing Organization Address [facility] de Phone Number [facility] [address] [place] [address] * (ABNORMAL) HEMAGRAM (04/13/2001 11:40 EDT) WBC 17.03(H) 4.5 - 13.0 K/cmm [facility] RBC 3.84(L) 4.50 - 5.30 M/cmm [facility] Hemoglobin 11.8(L) 13.0 - 16.0 gm/dl [facility] HCT 34.0(L) 37.0 - 49.0 % [facility] MCV 89 78 - 98 fl [facility] MCH 30.7 pg [facility] MCHC 34.5 gm/dl [facility] PLT 111(L) 156 - 312 K/cmm [facility] RDW-CV 13.4 % [facility] 04/13/2001 11:4 0 EDT 04/13/2001 11:41 EDT Jose Bejarano MD HEMATOLOGY & PF4 OR DERABLES Performing Organization Address [facility] [[email or web address]] Co de Phone Number [facility] [address] [place] [address] documented in this encounter Visit Diagnoses Not on filedocumented in this encounter
--- OUTSIDE RECORDS SUMMARY | 2024-08-16 12:30 | XMS_ITS | Encounter Summary ---
Author Organization [facility] [place] Address [address] [place] [address] Care Team Providers Care Steaming Cabinet Tender Name Role Phone Kathy Valera MD Primary Care Provider [phone] Encounter Details Date Type Department Care Team (Late st Contact Info) Description 12/22/2009 Results Only [facility] Cardiology - [facility] [address] [place], [place] [id number] Dayton Villalta MD [address] [address] Social History Tobacco Use Types Packs/Day Years Used Date Smoking Tobacco: Never Assessed Sex and Gender Information Value Date Recorded Sex Assigned at Not on file Gender Identity Not on file Sexual Orientation Not on file documented as of this encounter Plan of Treatment Not on file documented as of this encounter Procedures Procedure Name Priority Date/Time Associated Diagnosis Comments ECHOCARDIOGRAM 12/22/2009 15:08 EST documented in this encounter Results * ECHOCARDIOGRAM (12/22/2009 15:08 EST) Anatomical Region Laterality Modality Other 12/22/2009 15:0 8 EST Narrative 12/22/2009 16:54 EST Interpreting Group: [facility] [address] [place] [address] *STUDY CONCLUSIONS* SUMMARY - ??The left ventricle was moderately dilated. Overall left ventricular systolic function was mild to moderately decreased. Left ventricular ejection fraction was estimated in the range of 35 % to 40 %. There was moderate diffuse left ventricular hypokinesis. - ??There was a mechanical aortic valve prosthesis. There was trivial aortic valvular regurgitation by color Doppler. The mean transaortic valve gradient was 28 mmHg. The peak transaortic valve gradient was 38 mmHg. - ??Estimated peak pulmonary artery systolic pressure in the range of 35 mmHg to 40 mmHg plus right atrial pressure. - ??There was no significant pericardial effusion. *PATIENT PRESENTATION* Height: ? 71 in ( 180 cm ) S/D Pressure: Weight: ? 144.76 lb ( 65.8 kg ) BSA: ?1.84 m^2 Referring MD: ??Dayton Villalta MD Fellow: ?Leah Mora MD Cooker Tender: ?? Karri Lopez MD: ?? Dayton Villalta MD Referring MD: ??Alicia Lee Attending MD: ??Dayton Villalta MD *INDICATIONS AND HISTORY* DIAGNOSES SUPPORTING MEDICAL NECESSITY: 424.1 Aortic valve disorder *PROCEDURE DATA* PROCEDURE INFORMATION: A transthoracic complete 2D study was performed. Additional evaluation included M-mode, complete spectral Doppler, and color Doppler. This was a routine echocardiographic study. This study was interpreted by [facility] at [facility]. The procedure was started at 15:07:07. The procedure ended at 15:37:12. Massiel 4 Image quality was good. *CARDIAC ANATOMY* LEFT VENTRICLE: - ??The left ventricle was moderately dilated. - ??Overall left ventricular systolic function was mild to moderately decreased. - ??Left ventricular ejection fraction was estimated in the range of 35 % to 40 %. - ??There was moderate diffuse left ventricular hypokinesis. - ??Left ventricular wall thickness was normal. RIGHT VENTRICLE: - ??Right ventricular size was normal. - ??Right ventricular systolic function was normal. LEFT ATRIUM: - ??Left atrial size was normal. RIGHT ATRIUM: - ??Right atrial size was normal. AORTIC VALVE: - ??There was a mechanical aortic valve prosthesis. Doppler interpretation(s): - ??There was trivial aortic valvular regurgitation by color Doppler. MITRAL VALVE: - ??Mitral valve structure was normal. - ??There was normal mitral valve leaflet excursion. Doppler interpretation(s): - ??There was no significant mitral valve stenosis by color Doppler and spectral Doppler. - ??There was trivial mitral valvular regurgitation by color Doppler. PULMONIC VALVE: Doppler interpretation(s): - ??There was no significant pulmonic valve stenosis by color Doppler and spectral Doppler. - ??There was trivial pulmonic regurgitation by color Doppler. TRICUSPID VALVE: - ??The tricuspid valve structure was normal. Doppler interpretation(s): - ??There was no significant tricuspid valve stenosis by color Doppler and spectral Doppler. - ??There was trivial tricuspid valvular regurgitation by color Doppler. PERICARDIUM: - ??There was no significant pericardial effusion. AORTA: - ??The aortic root was normal in size. PULMONARY ARTERY: - ??Pulmonary artery size could not be determined. Doppler interpretation(s): - ??Estimated peak pulmonary artery systolic pressure in the range of 35 mmHg to 40 mmHg plus right atrial pressure. SYSTEMIC VEINS: - ??The inferior vena cava was normal. *MEASUREMENT TABLES* 2D measurements LEFT VENTRICLE ? NORMAL LVID ed (chordal) ? 64.1 ?? mm ?<56 mm LVID es (chordal) ? 54.3 ?? mm ?<40 mm FS (chordal) ?15 ? % ? >29% IVS ed ?9.9 ?mm ?<11mm LVPW ed ? 9.3 ?mm ?<11 mm AORTA ?NORMAL AO root (root) ?32.6 ?? mm ?<40 mm LEFT ATRIUM ?NORMAL LAD A-P es ?36 ? mm ?-- M-mode measurements LEFT VENTRICLE ? NORMAL LVID ed ? 64 ? mm ?<56mm LVID es ? 56 ? mm ?<40 mm FS ?12 ? % ? >29% IVS ed ?10 ? mm ?<11 mm LVPWT ed ?11 ? mm ?<11 mm LV mass ? 362.2 ??g ? <150 g W/<200 g M LV mass index ? 196.9 ??g/m^2 ?? -- LV mass/height ?2.01 ?? g/cm ?-- LV EF (Perla) ? 38 ? % ? > 55 % Doppler measurements LVOT, AV, AORTA ?NORMAL Peak AV velocity ?307 ?cm/sec ??1.0-1.7 m/s AV VTI ?78 ? cm ?20-30 cm Mean AV gradient ?28 ? mmHg ?<10 mmHg Peak AV gradient ?38 ? mmHg ?<16 mmHg MITRAL VALVE ? NORMAL Peak E velocity ? 68 ? cm/sec ??62 + or - 14 cm/sec Peak A velocity ? 86 ? cm/sec ??49 + or - 14 cm/sec MV peak E/A ? 0.79 ? 1.1-1.7 MV deceleration time ??189 ?msec ?210 + or - 40 Peak gradient ? 2 ?mmHg ?-- Reviewed and signed by Velasquez Mora MD Confirmed 22-Dec-2009 16:53:30 Procedure Note 12/22/2009 Interpreting Group: [facility] [address] [place] [id number] *STUDY CONCLUSIONS* SUMMARY - The left ventricle was moderately dilated. Overall left ventricular systolic function was mild to moderately decreased. Left ventricular ejection fraction was estimated in the range of 35 % to 40 %. There was moderate diffuse left ventricular hypokinesis. - There was a mechanical aortic valve prosthesis. There was trivialaortic valvular regurgitation by color Doppler. The mean transaortic valve gradient was 28 mmHg. The peak transaortic valve gradient was 38 mmHg. - Estimated peak pulmonary artery systolic pressure in the range of 35 mmHg to 40 mmHg plus right atrial pressure. - There was no significant pericardial effusion. *PATIENT PRESENTATION* Height: 71 in ( 180 cm ) S/D Pressure: Weight: 144.76 lb ( 65.8 kg ) BSA: 1.84 m^2 Referring MD: Dayton Villalta MD Fellow: Leah Mora MD Cooker Tender: Karri Lopez MD: Dayton Villalta MD Referring MD: Alicia Lee Attending MD: Dayton Villalta MD *INDICATIONS AND HISTORY* DIAGNOSES SUPPORTING MEDICAL NECESSITY: 424.1 Aortic valve disorder *PROCEDURE DATA* PROCEDURE INFORMATION: A transthoracic complete 2D study was performed. Additional evaluation included M-mode, complete spectral Doppler, and color Doppler. This wasa routine echocardiographic study. [facility]. The procedure was started at 15:07:07. The procedure ended at 15:37:12. Massiel 4 Image quality was good. *CARDIAC ANATOMY* LEFT VENTRICLE: - The left ventricle was moderately dilated. - Overall left ventricular systolic function was mild to moderately decreased. - Left ventricular ejection fraction was estimated in the range of 35 %to 40 %. - There was moderate diffuse left ventricular hypokinesis. - Left ventricular wall thickness was normal. RIGHT VENTRICLE: - Right ventricular size was normal. - Right ventricular systolic function was normal. LEFT ATRIUM: - Left atrial size was normal. RIGHT ATRIUM: - Right atrial size was normal. AORTIC VALVE: - There was a mechanical aortic valve prosthesis. Doppler interpretation(s): - There was trivial aortic valvular regurgitation by color Doppler. MITRAL VALVE: - Mitral valve structure was normal. - There was normal mitral valve leaflet excursion. Doppler interpretation(s): - There was no significant mitral valve stenosis by color Doppler and spectral Doppler. - There was trivial mitral valvular regurgitation by color Doppler. PULMONIC VALVE: Doppler interpretation(s): - There was no significant pulmonic valve stenosis by color Doppler and spectral Doppler. - There was trivial pulmonic regurgitation by color Doppler. TRICUSPID VALVE: - The tricuspid valve structure was normal. Doppler interpretation(s): - There was no significant tricuspid valve stenosis by color Dopplerand spectral Doppler. - There was trivial tricuspid valvular regurgitation by color Doppler. PERICARDIUM: - There was no significant pericardial effusion. AORTA: - The aortic root was normal in size. PULMONARY ARTERY: - Pulmonary artery size could not be determined. Doppler interpretation(s): - Estimated peak pulmonary artery systolic pressure in the range of 35 mmHg to 40 mmHg plus right atrial pressure. SYSTEMIC VEINS: - The inferior vena cava was normal. *MEASUREMENT TABLES* 2D measurements LEFT VENTRICLE NORMAL LVID ed (chordal) 64.1 mm <56 mm LVID es (chordal) 54.3 mm <40 mm FS (chordal) 15 % >29% IVS ed 9.9 mm <11mm LVPW ed 9.3 mm <11 mm AORTA NORMAL AO root (root) 32.6 mm <40 mm LEFT ATRIUM NORMAL LAD A-P es 36 mm -- M-mode measurements LEFT VENTRICLE NORMAL LVID ed 64 mm <56mm LVID es 56 mm <40 mm FS 12 % >29% IVS ed 10 mm <11 mm LVPWT ed 11 mm <11 mm LV mass 362.2 g <150 g W/<200 g M LV mass index 196.9 g/m^2 -- LV mass/height 2.01 g/cm -- LV EF (Teichholz) 38 % > 55 % Doppler measurements LVOT, AV, AORTA NORMAL Peak AV velocity 307 cm/sec 1.0-1.7 m/s AV VTI 78 cm 20-30 cm Mean AV gradient 28 mmHg <10 mmHg Peak AV gradient 38 mmHg <16 mmHg MITRAL VALVE NORMAL Peak E velocity 68 cm/sec 62 + or - 14 cm/sec Peak A velocity 86 cm/sec 49 + or - 14 cm/sec MV peak E/A 0.79 1.1-1.7 MV deceleration time 189 msec 210 + or - 40 Peak gradient 2 mmHg -- Reviewed and signed by Velasquez Mora MD Confirmed 22-Dec-2009 16:53:30 Dayton Villalta MD CARDIAC ECHO Haris MARTI documented in this encounter Visit Diagnoses Not on filedocumented in this encounter Care Teams Steaming Cabinet Tender Relationship Specialty Start Date End Date Kathy Valera MD [address] [place] [address] PCP - General 12/10/09 documented as of this encounter
--- OUTSIDE RECORDS SUMMARY | 2024-08-16 12:30 | XMS_ITS | Encounter Summary ---
Author Organization [facility] Address [address] [place] [address] Care Team Providers Care Acute Care Physician Name Role Phone Unavailable Primary Care Provider Unavailabl e Encounter Details Date Type Department Care Team (Latest Contact Info) Description 10/02/2002 10:07 EST - 10/02/2002 11:59 EST Hospital Encounter [facility] - [facility] conversion [address] [place] [address] Bhargav Kapoor MD [address] [place] [address] Discharge Disposition: Auto Discharge Social History Tobacco [...] Priority Date/Time Associated Diagnosis Comments PROTIME Routine 10/02/2002 11:05 EST COMPLETE BLOOD COUNT Routine 10/02/2002 11:05 EST documented in this encounter Results * (ABNORMAL) PROTIME (10/02/2002 11:05 EST) Pro Time 19.7(H) 11.7 - 13.1 secs [facility] I.N.R. 2.5(H) 0.8 - 1.2 Ratio [facility] Comment: Moderate Intensity Coumadin INR = 2.0-3.0 Adjustments in anticoagulant therapy dose should be based upon the INR and NOT the Pro Time. 10/02/2002 11:0 5 EST 10/02/2002 12:08 EST Serge Mendez MD HEMATOLOGY & PF4 OR DERABLES Performing Organization Address [facility] de Phone Number [facility] [address] [place] [address] * HEMAGRAM (10/02/2002 11:05 EST) WBC 4.98 4.6 - 11.2 K/cmm [facility] RBC 5.09 4.50 - 5.30 M/cmm [facility] Hemoglobin 15.7 13.0 - 16.0 gm/dl [facility] HCT 46.7 37.0 - 49.0 % [facility] MCV 92 78 - 98 fl [facility] MCH 30.9 pg [facility] MCHC 33.7 gm/dl [facility] PLT 243 156 - 312 K/cmm [facility] RDW-CV 14.0 % [facility] 10/02/2002 11:0 5 EST 10/02/2002 12:08 EST Serge Mendez MD HEMATOLOGY & PF4 OR DERABLES Performing Organization Address [facility] de Phone Number [facility] [address] [place] [address] documented in this encounter Visit Diagnoses Not on filedocumented in this encounter
--- OUTSIDE RECORDS SUMMARY | 2024-08-16 12:30 | XMS_ITS | Encounter Summary ---
Author Organization [facility] Address [address] [place] [address] Care Team Providers Care Consumer Studies Professor Name Role Phone Kathy Valera MD Primary Care Provider [phone] Reason for Visit * Reason Onset Date Comments Other 03/10/2011 Encounter Details Date Type Department Care Team (Late st Contact Info) Description 03/10/2011 Telephone [facility] Cardiology - [address] [place] [address] Roseann Carr, RN Other Social History Tobacco Use Types Packs/Day Years Used Date Smoking Tobacco: Never Alcohol Use Standard Drinks/Week Comments Not Asked 0 (1 standard drink = 0.6 oz pur e alcohol) Sex and Gender Information Value Date Recorded Sex Assigned at Not on file Gender Identity Not on file Sexual Orientation Not on file documented as of this encounter Miscellaneous Notes * Telephone Encounter - Zee Estrella RN - 03/11/2011 0840 EDT Will look for letter from Dr Villalta and fax when completed. 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 The letter is to be addressed to [facility] at [facility]. Fax number is . Will notify Dr. Villalta. documented in this encounter Plan of Treatment Not on file documented as of this encounter Visit Diagnoses Not on filedocumented in this encounter Care Teams Consumer Studies Professor Relationship Specialty Start Date End Date Kathy Valera MD [address] [place] [address] PCP - General 12/10/09 documented as of this encounter
--- OUTSIDE RECORDS SUMMARY | 2024-08-16 12:30 | XMS_ITS | Encounter Summary ---
Author Organization [facility] Address [address] [place] [address] Care Team Providers Care General Superintendent Name Role Phone Kathy Valera MD Primary Care Provider [phone] Encounter Details Date Type Department Care Team (Late st Contact Info) Description 04/13/2001 Results Only [facility] Cardiothoracic Surgery - [facility] [address] [place], [place] [id number] Jose Bejarano MD [facility] [address] [address] Social History Tobacco Use Types Packs/Day Years Used Date Smoking Tobacco: Never Assessed Sex and Gender Information Value Date Recorded Sex Assigned at Not on file Gender Identity Not on file Sexual Orientation Not on file documented as of this encounter Plan of Treatment Not on file documented as of this encounter Procedures Procedure Name Priority Date/Time Associated Diagnosis Comments SURGICAL PATHOLOGY Routine 04/13/2001 0:00 EDT documented in this encounter Results * SURGICAL PATHOLOGY (04/13/2001 0:00 EDT) Pathology Report: SURGICAL PATHOLOGY REPORT Reports generated via electronic interface contain original data; however they are lacking the format of the original report. Caution should be taken when reading/interpreti ng unformatted reports. Name: ? GUERA NORWOOD ? Accession #: ? [id number] ? : ? 1985 (Age: 15) ??M ? Collect Date: ? 04/13/2001 ? Location: ? [facility] ? Receive Date: ? 04/13/2001 ? Provider: JOSE BEJARANO MD Copy to: ? Final Pathologic Diagnosis: ? Aortic valve, excision: - Myxoid change and focal dystrophic calcification. See comment. Comment: ? Additional clinical history was obtained from Dr. Bejarano' s office on 04/17/01. Document reviewed and electronically signed by: AYDE HAMILTON MD Report ??Date: 04/17/2001 14:29 By the signature above, the attending physician certifies that he/she has personally conducted a gross and/or microscopic examination of the described specimens and rendered or confirmed the above diagnosis. Specimen(s) Received: ? Aortic valve Clinical History: ? Not listed Gross Description: ? Received in normal saline labelled Norwood and aortic valve is a white, shiny, membranous tissue which measures 5.0 cm in length, 1.0 cm in width, and 0.2 cm in thickness. ??There are multiple, small foci of the yellow area which measures from 0.4 cm to 0.2 cm. ??Four business office representative sections are submitted as (A1) and (A2). ??(Dr. Dee)/[facility] End of Report [facility] 04/13/2001 04/13/2001 14: 35 EDT Jose Bejarano MD PATHOLOGY ORDERABLE S [facility] [address] [place] [address] documented in this encounter Visit Diagnoses Not on filedocumented in this encounter Care Teams General Superintendent Relationship Specialty Start Date End Date Kathy Valera MD [address] [place] [address] PCP - General 12/10/09 documented as of this encounter
--- OUTSIDE RECORDS SUMMARY | 2024-08-16 12:30 | XMS_ITS | Encounter Summary ---
Author Organization [facility] Address [address] [place] [address] Care Team Providers Care Starch Factory Laborer Name Role Phone Kathy Valera MD Primary Care Provider [phone] Reason for Visit * Reason Onset Date Comments Other 06/22/2010 Encounter Details Date Type Department Care Team (Late st Contact Info) Description 06/22/2010 Telephone [facility] Cardiology - [address] [place], [place] [id number] Roseann Carr, RN Other Social History Tobacco Use Types Packs/Day Years Used Date Smoking Tobacco: Never Alcohol Use Standard Drinks/Week Comments Not Asked 0 (1 standard drink = 0.6 oz pur e alcohol) Sex and Gender Information Value Date Recorded Sex Assigned at Not on file Gender Identity Not on file Sexual Orientation Not on file documented as of this encounter Ordered Prescriptions Prescription Sig Dispensed Refills Start Date End Da te lisinopril (PRINIVIL, ZESTRIL) 20 mg tablet Take 1 Tab by mouth daily. 30 Tab 5 06/22/2010 11/19/2013 documented in this encounter Miscellaneous Notes * Telephone Encounter - Roseann Carr - 06/22/2010 1354 EDT Updating meds per dr. Villalta note on 06/15/10. documented in this encounter Plan of Treatment Not on file documented as of this encounter Visit Diagnoses Not on filedocumented in this encounter Discontinued Medications Medication Sig Discontinue Reason Start Date End Da te lisinopril (PRINIVIL, ZESTRIL) 10 mg tablet Take 10 mg by mouth daily. Dose adjustment 06/22/2010 documented as of this encounter Care Teams Starch Factory Laborer Relationship Specialty Start Date End Date Kathy Valera MD [address] [place] [address] PCP - General 12/10/09 documented as of this encounter
--- OUTSIDE RECORDS SUMMARY | 2024-08-16 12:30 | XMS_ITS | Encounter Summary ---
Author Organization [facility] Address [address] [place] [address] Care Team Providers Care Spotter Name Role Phone Unavailable Primary Care Provider Unavailabl e Encounter Details Date Type Department Care Team (Late st Contact Info) Description 03/28/2001 15:[address] [facility] - [facility] [address] [place] [address] Richard Gomes MD [address] [place] [address] Social History Tobacco Use Types Packs/Day Years [...] Procedure Name Priority Date/Time Associated Diagnosis Comments VWF ANTIGEN Routine 03/28/2001 16:15 EDT PTT Routine 03/28/2001 16:15 EDT PROTIME Routine 03/28/2001 16:15 EDT COMPLETE BLOOD COUNT Routine 03/28/2001 16:15 EDT HEPATIC FUNCTION PANEL (ALB,ALK PHOS,ALT,AST,DBIL,T OT LAINEY,TOT PROT) Routine 03/28/2001 16:15 EDT documented in this encounter Results * VWF ANTIGEN (03/28/2001 16:15 EDT) VWF Antigen 92Unit: % ??(Note) -- EXPECTED VALUES -- ? (Ref Range) 55 to 200 (Adult) ? Neonates, infants, and ? children have normal plasma ? vWF antigen (neonates may have ? increased vWF antigen) with ? respect to the adult reference ? range. ? Please note change in methodology and reference ranges ? effective March 22, 2001. ? [facility] 03/28/2001 16:1 5 EDT 03/28/2001 18:24 EDT Richard Gomes MD HEMATOLOGY & PF4 ORD ERABLES Performing Organization Address [facility] de Phone Number [facility] [address] [place] [address] * PTT (03/28/2001 16:15 EDT) PTT 30 23 - 33 secs [facility] Comment:Therapeutic Heparin range: 58-100 seconds 03/28/2001 16:1 5 EDT 03/28/2001 18:24 EDT Richard Gomes MD HEMATOLOGY & PF4 ORD ERABLES Performing Organization Address [facility] de Phone Number [facility] [address] [place] [address] * PROTIME (03/28/2001 16:15 EDT) Pro Time 12.1 11.3 - 13.1 secs [facility] Comment:Patient is not on Co umadin I.N.R. 1.0 0.8 - 1.2 Ratio [facility] Comment: Moderate Intensity Coumadin INR = 2.0-3.0 Adjustments in anticoagulant therapy dose should be based upon the INR and NOT the Pro Time. Patient is not on Coumadin 03/28/2001 16:1 5 EDT 03/28/2001 18:24 EDT Richard Gomes MD HEMATOLOGY & PF4 ORD ERABLES Performing Organization Address [facility] de Phone Number [facility] [address] [place] [address] * (ABNORMAL) LIVER FUNCTION TESTS (03/28/2001 16:15 EDT) Albumin 4.9 3.0 - 5.5 g/dl [facility] Comment:Slightly lipemic Total Protein 7.8 6.3 - 8.6 g/dl [facility] Comment:Slightly lipemic Total Alkaline Phosphatase 126(L) 130 - 525 U/L [facility] Comment:Slightly lipemic ALT 26 10 - 45 U/L [facility] Comment:Slightly lipemic AST 17 16 - 38 U/L [facility] Comment:Slightly lipemic Unconjugated Bilirubin 0.3 0.1 - 1.1 mg/dl [facility] Comment:Slightly lipemic Conjugated Bilirubin 0.0 0.0 - 0.3 mg/dl [facility] Comment:Slightly lipemic Bilirubin, Total 0.3 mg/dl [facility] Comment:Slightly lipemic 03/28/2001 16:1 5 EDT 03/28/2001 18:24 EDT Richard Gomes MD CHEMISTRY & BLOOD GA S ORDERABLES Performing Organization Address [facility] de Phone Number [facility] [address] [place] [address] * HEMAGRAM (03/28/2001 16:15 EDT) WBC 9.30 4.5 - 13.0 K/cmm [facility] RBC 5.24 4.50 - 5.30 M/cmm [facility] Hemoglobin 15.6 13.0 - 16.0 gm/dl [facility] HCT 46.6 37.0 - 49.0 % [facility] MCV 89 78 - 98 fl [facility] MCH 29.8 pg [facility] MCHC 33.5 gm/dl [facility] PLT 286 156 - 312 K/cmm [facility] RDW-CV 14.1 % [facility] 03/28/2001 16:1 5 EDT 03/28/2001 18:24 EDT Richard Gomes MD HEMATOLOGY & PF4 ORD ERABLES [facility] [address] [place] [address] documented in this encounter Visit Diagnoses Not on filedocumented in this encounter
--- OUTSIDE RECORDS SUMMARY | 2024-08-16 12:30 | XMS_ITS | Encounter Summary ---
Author Organization [facility] Address [address] [place] [address] Care Team Providers Care Service Counselor Name Role Phone Kathy Valera MD Primary Care Provider [phone] Reason for Referral * Cardiology (Routine/Next Available) - Closed Specialty Diagnoses / Procedures Referred By Contac t Referred To Contact Diagnoses S/P aortic valve replacement Aortic valve disorders Procedures ECHOCARDIOGRAM Armando Laureano MD [address] [place] [address] Referral ID Status Reason Start Date Expiration Date Visits Re quested Visits Authorized [id number] Closed 11/19/2013 1 1 Reason for Visit * Reason Comments Other Today is a 2.5 year follow up without an echo, wondering if he should have had one. Doing well, has had episodes of tachy at rest and with exertion (says this is normal for him) Encounter Details Date Type Department Care Team (Late st Contact Info) Description 11/19/2013 14:30 EST Office Visit [facility] Cardiology - [address] [place] [address] Armnado Laureano MD [address] [place] [address] S/P aortic valve replacement (Primary Dx); Aortic valve disorders Social History [...] Sign Reading Time Taken Comments Blood Pressure 104/82 11/19/2013 1412 EST Pulse 94 11/19/2013 1412 EST Temperature - - Respiratory Rate - - Oxygen Saturation 99% 11/19/2013 1412 EST Inhaled Oxygen Concentration - - Weight 70.3 kg (155 lb) 11/19/2013 1412 EST Height 180.3 cm (5' 11) 11/19/2013 1412 EST Body Mass Index 21.62 11/19/2013 1412 EST documented in this encounter Discharge Diagnoses Diagnosis V43.3 HEART VALVE REPLAC NEC[ICD-9-CM] 424.1 AORTIC VALVE DISORDER[ICD-9-CM] documented in this encounter Ordered Prescriptions Prescription Sig Dispensed Refills Start Date End Da te metoprolol XL (TOPROL XL) 200 mg tablet Take 1 Tab by mouth daily. 90 Tab 3 11/19/2013 lisinopril (PRINIVIL, ZESTRIL) 20 mg tablet Take 1 Tab by mouth daily. 90 Tab 3 11/19/2013 03/06/2018 documented in this encounter Progress Notes * Ritesh Gould MD - 11/19/2013 1521 EST Cardiology Note Reason for Visit: Bicuspid aortic valve HPI: Abilio is a 28yo man who underwent mechanical aortic valve replacement ([address] Greg) in 2000 for a severe aortic regurgitation associated with a bicuspid aortic valve. Due to severe regurgitation he had developed a dilated cardiomyopathy. His LV size and function has improved with ACEI and beta-loc therapy. He is doing well and does not feel restrictions in his physically demanding job with up to 80 hrs of work per week. Occasionally he has been experiencing a rapid, regular heart beat, which starts allof a sudden and terminates abruptly after a few minutes. During these episodes which happen maybe once a month he feels lightheaded; he has never lost consciousness. Since he has been monitoring his INR by himself, his INR more often in the therapeutic range of 2.5to 3. He has not seen a dentist on a regular basis until recently. Now he sees a dental hygienist twice ayear, brushes his teeth twice a day and uses floss. He is up to date with his vaccinations, including this year's influenza vaccination. He denies dyspnea, orthopnea/PND, CP, edema, or bleeding ROS: A 10-point review of systems was conducted and was negative except as noted above. MAR: Reviewed, cardiac medications listed below 1. Metoprolol XL 100 mg QD 2. Lisinopril 10 mg QD Physical Exam: VS: Blood pressure 104/82, pulse 94, height 180.3 cm (71), weight 70.308 kg (155 lb), SpO2 99.00%.on RA. Body mass index is 21.63 kg/(m^2). GEN: NAD Psych: A&O x3 Eyes: Anicteric ENT: MMM Neck: Supple CVS: No JVD/carotid bruits, brisk carotid upstrokes No RV heave, PMI not displaced RRR Nl S1/S2,crisp mechanical AV closure sound, 2/6 early peaking crescendo- decrescendo murmur along the LLSB No edema 2+ DP Lungs: CTAB, no R/R/W Abd: Soft, NT, ND, BS+ Extr: No deformities, no edema, 2+ DP Neuro: No focal deficits Labs N/A TTE 04/2011: Mildly dilated LV (MAME 63 mm), nl LV function, nl RV size and function. Mechanical AVR MG 29 mmHg, PG 44 mmHg. Aortic root (32 mm), ascending aorta (32 mm) WNL. TTE today: The LV size was upper steve (5.8 cm at end-diastole) with an LV ejection fraction of about 50%. The prosthetic aortic valve function was normal. Impression and Plan: Bicuspid aortic valve s/p mechanical prosthesis for severe aortic regurgitation and associated dilated cardiomyopathy Abilio is doing well from a cardiorespiratory standpoint. He does not show any signs of heart failure or aortic valve prosthesis malfunction. At this point he should continue lisinopril and coumadin at the current doses. We emphasized the importance of skin and dental hygiene and the need for antibiotic prophylaxis prior to dental procedures. We advised him to seek medical attention, if develops afever of unclear origin as this could represent endocarditis. Palpitations It sounds like he has bouts of supraventricular tachycardia. The episodes have definitely gotten less frequent and severe since he was started on metoprolol. Given his fairly high resting heart rate (94) today, we increased his metoprolol XL to 200 mg QD. Suspected amaurosis fugax Abilio did not mention this today but we came across it reviewing the note by his PCP from 04/2013. Embolization from his valve is unlikely if INR is within therapeutic range. His amaursis fugax may marianne migraine variant. We will see him back in 2 years and repeat an echocardiogram at the same visit. Donta Gould MD, PhD Pager [phone] I have seen and evaluated the patient with Dr. Gould, and I have reviewed and edited his note. I agree with his assessment and plan as outlined above. ARMANDO LAUREANO MD Attending Manager Credit Collections * Armando Laureano MD - 11/19/2013 1501 EST This office note has been dictated. documented in this encounter Plan of Treatment Not on file documented as of this encounter Procedures Procedure Name Priority Date/Time Associated Diagnosis Comments ECHOCARDIOGRAM Routine 11/19/2013 16:57 EST S/P aortic valve replacement Aortic valve disorders documented in this encounter Results * ECHOCARDIOGRAM (11/19/2013 16:57 EST) Anatomical Region Laterality Modality Other 11/19/2013 16:5 7 EST Narrative 11/20/2013 8:23 EST *Interpreting Group:* *[facility]* [address] [place] [address] *STUDY CONCLUSIONS* Summary: 1. Left ventricle: The cavity size was at the upper limits of normal. Wall ?? thickness was at the upper limits of normal. Systolic function was mildly ?? reduced. The estimated ejection fraction was 50%. Diffuse hypokinesis. Left ?? ventricular diastolic function parameters were normal. 2. Ventricular septum: Septal motion showed paradoxical motion. These changes ?? are consistent with a post-thoracotomy state. 3. Aortic valve: A mechanical prosthesis was present. No significant ?? regurgitation. Mean gradient: 26mm Hg (S). Peak gradient: 39mm Hg (S). *PATIENT PRESENTATION* Height: ? 180.3cm (71in ) S/D Pressure: 106 / 56 Weight: ? 70.3kg (154.7lb ) BSA: ?1.87m^2 Test start time: ??03:42 PM. Test stop time: ??04:05 PM. ATTENDING ?Armando Laureano MD ORDERING ? Armando Laureano MD REFERRING ?Kathy Valera PERFORMING ?? [facility], Op API DEVELOPER ??Tiera Buckner *PROCEDURE DATA* Procedure information: ??This study was interpreted by [facility]. ??Study status: ??Routine. Transthoracic echocardiography. ??M-mode, complete 2D, complete spectral Doppler, and color Doppler. A Transthoracic Echocardiogram was performed. Scanning was performed from the parasternal, apical, subcostal, and suprasternal notch acoustic windows. Images were obtained using a Vitaly [id number] cardiac ultrasound machine. Image quality was adequate. ??Study completion: ??The patient tolerated the procedure well. *INDICATIONS AND HISTORY* Indications: ?? Aortic stenosis 424.1. *CARDIAC ANATOMY* Left ventricle: ??The cavity size was at the upper limits of normal. Wall thickness was at the upper limits of normal. Systolic function was mildly reduced. The estimated ejection fraction was 50%. Diffuse hypokinesis. Left ventricular diastolic function parameters were normal. Aortic valve: ??A mechanical prosthesis was present. ??Doppler: ?? No significant regurgitation. ?Mean gradient: 26mm Hg (S). Peak gradient: 39mm Hg (S). Aorta: ??Aortic root: The aortic root was normal in size. Mitral valve: ?? Structurally normal valve. ?? Mobility was not restricted. Doppler: ??Transvalvular velocity was within the normal range. There was no evidence for stenosis. ??No regurgitation. Left atrium: ??The atrium was normal in size. Right ventricle: ??The cavity size was normal. Wall thickness was normal. Systolic function was normal. Ventricular septum: ?? Septal motion showed paradoxical motion. These changes are consistent with a post-thoracotomy state. Pulmonic valve: ?Doppler: ??Transvalvular velocity was within the normal range. There was no evidence for stenosis. ??No regurgitation. Tricuspid valve: ?? Structurally normal valve. ?Doppler: ??Transvalvular velocity was within the normal range. There was no evidence for stenosis. ??No regurgitation. Pulmonary artery: ?Systolic pressure could not be accurately estimated. Right atrium: ??The atrium was normal in size. Pericardium: ??There was no pericardial effusion. Systemic veins: Inferior vena cava: The vessel was normal in size. *MEASUREMENT TABLES* 2D measurements ? Normal Left ventricle LV internal dimension, ED, chordal level, PLAX ?? *56 mm ? 43-52 LV internal dimension, ES, chordal level, PLAX ?? *40 mm ? 23-38 Fractional shortening, chordal level, PLAX ? *29 % ?>29 Area, ED, A4C ? 35.7 cm^2 ?? 17.7-47.3 Area, ES, A4C ? 23.9 cm^2 ?? 7.9-31.5 Fractional area change, A4C ? 33 % ?--------- Area, ED, A2C ? 37.4 cm^2 ?? --------- Area, ES, A2C ? 24.3 cm^2 ?? 8.9-28.1 Fractional area change, A2C ? 35 % ?33.7- 69 LV posterior wall thickness, ED ?9 mm ? --------- IVS/LVPW ratio, ED ? 1.1 ?<1.3 Ejection fraction ? 54.5 % ?--------- Stroke volume ? 84 ml ? --------- Stroke index ?44.8 ml/m^2 --------- Volume, ED, MOD, 1-plane ? 111 ml ? --------- Volume, ES, MOD, 1-plane ?58 ml ? --------- Ejection fraction, MOD, 1-plane ? 48 % ?--------- Stroke volume, MOD, 1-plane ? 53 ml ? --------- Volume index, ED, MOD, 1-plane ?59 ml/m^2 --------- Volume index, ES, MOD, 1-plane ?31 ml/m^2 --------- Stroke index, MOD, 1-plane ?28.3 ml/m^2 --------- Volume, ED, MOD, 2-plane ? 117 ml ? 62-170 Volume, ES, MOD, 2-plane ?60 ml ? --------- Ejection fraction, MOD, 2-plane ? 49 % ?--------- Stroke volume, MOD, 2-plane ? 57 ml ? --------- Volume index, ED, MOD, 2-plane ?62 ml/m^2 --------- Volume index, ES, MOD, 2-plane ?32 ml/m^2 --------- Stroke index, MOD, 2-plane ?30.4 ml/m^2 --------- Ventricular septum Septal thickness, ED ?10 mm ? --------- Aorta Root diameter, ED ? 33 mm ? --------- Ascending aorta anterior-posterior diameter, S ?32 mm ? --------- Left atrium Anterior-posterior dimension ?36 mm ? --------- Anterior-posterior dimension index ?1.92 cm/m^2 <2.2 Superior-inferior dimension, A4C ?36 mm ? 29-53 ?? M-mode measurements ? Normal Left ventricle LV internal dimension, ED ? 56 mm ? 37-56 LV internal dimension, ES ? 41 mm ? --------- Fractional shortening ?*27 % ?29- 45 LV posterior wall, ED ? 10 mm ? 6-11 Septal/posterior wall ratio, ED ?1 ?--------- Relative wall thickness, ED ?0.4 ?<0.45 Volume, ED, Teichholz ?154 ml ? --------- Volume, ES, Teichholz ? 74.2 ml ? --------- Ejection fraction, Teichholz ? *51.8 % ?64-83 Volume index, ED, Teichholz ? 82 ml/m^2 --------- Volume index, ES, Teichholz ? 40 ml/m^2 --------- Wall mass ?219.7 g ?--------- Wall mass index ?117.3 g/m^2 ??--------- Mass/height ? 1.22 g/cm ?? --------- Ventricular septum Septal thickness, ED ?10 mm ? --------- ?? Doppler measurements ?Normal Left ventricle IVRT ?85 ms ? 60-100 Ea, lateral annulus, tissue Doppler ? 6.47 cm/s ?? --------- E/Ea, lateral annulus, tissue Doppler ? 10.3 ?--------- Aortic valve Peak velocity, S ? 313 cm/s ?? --------- Mean velocity, S ? 240 cm/s ?? --------- VTI, S ?60.4 cm ? --------- Mean gradient, S ?26 mm Hg ??--------- Peak gradient, S ?39 mm Hg ??--------- Mitral valve Peak E-wave velocity ?66.6 cm/s ?? --------- Peak A-wave velocity ?54.3 cm/s ?? --------- Deceleration time ?155 ms ? 150-230 Peak E/A ratio ? 1.2 ?--------- Legend: Mean values are shown as u=mean value. Asterisk (*) lewis values outside specified normal range. Electronically signed by Velasquez Mora MD 11/20/2013 08:23 Procedure Note 11/20/2013 *Interpreting Group:* *[facility]* [address] [place] [address] *STUDY CONCLUSIONS* Summary: 1. Left ventricle: The cavity size was at the upper limits of normal. Wall thickness was at the upper limits of normal. Systolic function wasmildly reduced. The estimated ejection fraction was 50%. Diffuse hypokinesis.Left ventricular diastolic function parameters were normal. 2. Ventricular septum: Septal motion showed paradoxical motion. Thesechanges are consistent with a post-thoracotomy state. 3. Aortic valve: A mechanical prosthesis was present. No significant regurgitation. Mean gradient: 26mm Hg (S). Peak gradient: 39mm Hg (S). *PATIENT PRESENTATION* Height: 180.3cm (71in ) S/D Pressure: 106 / 56 Weight: 70.3kg (154.7lb ) BSA: 1.87m^2 Test start time: 03:42 PM. Test stop time: 04:05 PM. ATTENDING Armando Laureano MD ORDERING Armando Laureano MD REFERRING Fawnsharif Kathy PERFORMING Fa, Op API DEVELOPER Tiera Buckner *PROCEDURE DATA* Procedure information: This study was interpreted by [facility]. Study status: Routine.Transthoracic echocardiography. M-mode, complete 2D, complete spectral Doppler, andcolor Doppler. A Transthoracic Echocardiogram was performed. Scanning wasperformed from the parasternal, apical, subcostal, and suprasternal notch acoustic windows. Images were obtained using a Vitaly [id number] 8 cardiac ultrasoundmachine. Image quality was adequate. Study completion: The patient tolerated the procedure well. *INDICATIONS AND HISTORY* Indications: Aortic stenosis 424.1. *CARDIAC ANATOMY* Left ventricle: The cavity size was at the upper limits of normal. Wall thickness was at the upper limits of normal. Systolic function was mildly reduced. The estimated ejection fraction was 50%. Diffuse hypokinesis.Left ventricular diastolic function parameters were normal. Aortic valve: A mechanical prosthesis was present. Doppler: Nosignificant regurgitation. Mean gradient: 26mm Hg (S). Peak gradient: 39mm Hg (S). Aorta: Aortic root: The aortic [...] normal. Ventricular septum: Septal motion showed paradoxical motion. Thesechanges are consistent with a post-thoracotomy state. Pulmonic valve: Doppler: Transvalvular velocity was within the normalrange. There was no evidence for stenosis. No regurgitation. Tricuspid valve: Structurally normal valve. Doppler: Transvalvular velocity was within the normal range. There was no evidence for stenosis.No regurgitation. Pulmonary artery: Systolic pressure could not be accurately estimated. Right atrium: The atrium was normal in size. Pericardium: There was no pericardial effusion. Systemic veins: Inferior vena cava: The vessel was normal in size. *MEASUREMENT TABLES* 2D measurements Normal Left ventricle LV internal dimension, ED, chordal level, PLAX *56 mm 43-52 LV internal dimension, ES, chordal level, PLAX *40 mm 23-38 Fractional shortening, chordal level, PLAX *29 % >29 Area, ED, A4C 35.7 cm^2 17.7-47.3 Area, ES, A4C 23.9 cm^2 7.9-31.5 Fractional area change, A4C 33 % --------- Area, ED, A2C 37.4 cm^2 --------- Area, ES, A2C 24.3 cm^2 8.9-28.1 Fractional area change, A2C 35 % 33.7-69 LV posterior wall thickness, ED 9 mm --------- IVS/LVPW ratio, ED 1.1 <1.3 Ejection fraction 54.5 % --------- Stroke volume 84 ml --------- Stroke index 44.8 ml/m^2 --------- Volume, ED, MOD, 1-plane 111 ml --------- Volume, ES, MOD, 1-plane 58 ml --------- Ejection fraction, MOD, 1-plane 48 % --------- Stroke volume, MOD, 1-plane 53 ml --------- Volume index, ED, MOD, 1-plane 59 ml/m^2 --------- Volume index, ES, MOD, 1-plane 31 ml/m^2 --------- Stroke index, MOD, 1-plane 28.3 ml/m^2 --------- Volume, ED, MOD, 2-plane 117 ml 62-170 Volume, ES, MOD, 2-plane 60 ml --------- Ejection fraction, MOD, 2-plane 49 % --------- Stroke volume, MOD, 2-plane 57 ml --------- Volume index, ED, MOD, 2-plane 62 ml/m^2 --------- Volume index, ES, MOD, 2-plane 32 ml/m^2 --------- Stroke index, MOD, 2-plane 30.4 ml/m^2 --------- Ventricular septum Septal thickness, ED 10 mm --------- Aorta Root diameter, ED 33 mm --------- Ascending aorta anterior-posterior diameter, S 32 mm --------- Left atrium Anterior-posterior dimension 36 mm --------- Anterior-posterior dimension index 1.92 cm/m^2 <2.2 Superior-inferior dimension, A4C 36 mm 29-53 M-mode measurements Normal Left ventricle LV internal dimension, ED 56 mm 37-56 LV internal dimension, ES 41 mm --------- Fractional shortening *27 % 29-45 LV posterior wall, ED 10 mm 6-11 Septal/posterior wall ratio, ED 1 --------- Relative wall thickness, ED 0.4 <0.45 Volume, ED, Teichholz 154 ml --------- Volume, ES, Teichholz 74.2 ml --------- Ejection fraction, Teichholz *51.8 % 64-83 Volume index, ED, Teichholz 82 ml/m^2 --------- Volume index, ES, Teichholz 40 ml/m^2 --------- Wall mass 219.7 g --------- Wall mass index 117.3 g/m^2 --------- Mass/height 1.22 g/cm --------- Ventricular septum Septal thickness, ED 10 mm --------- Doppler measurements Normal Left ventricle IVRT 85 ms 60-100 Ea, lateral annulus, tissue Doppler 6.47 cm/s --------- E/Ea, lateral annulus, tissue Doppler 10.3 --------- Aortic valve Peak velocity, S 313 cm/s --------- Mean velocity, S 240 cm/s --------- VTI, S 60.4 cm --------- Mean gradient, S 26 mm Hg --------- Peak gradient, S 39 mm Hg --------- Mitral valve Peak E-wave velocity 66.6 cm/s --------- Peak A-wave velocity 54.3 cm/s --------- Deceleration time 155 ms 150-230 Peak E/A ratio 1.2 --------- Legend: Mean values are shown as u=mean value. Asterisk (*) lewis values outside specified normal range. Electronically signed by Velasquez Mora MD 11/20/2013 08:23 Armando Laureano MD CARDIAC ECHO O KAIA documented in this encounter Visit Diagnoses Diagnosis S/P aortic valve replacement- Primary Heart valve replaced by other means Aortic valve disorders documented in this encounter Discontinued Medications Medication Sig Discontinue Reason Start Date End Da te metoprolol XL (TOPROL XL) 100 mg tablet Take 1 Tab by mouth daily. Dose adjustment 03/09/2010 11/19/2013 lisinopril (PRINIVIL, ZESTRIL) 20 mg tablet Take 1 Tab by mouth daily. Reorder 06/22/2010 11/19/2013 documented as of this encounter Historical Medications * This list may reflect changes made after this encounter. Medication Sig Dispensed Refills Start Date End Date sumatriptan (IMITREX) 50 mg tablet Take 50 mg by mouth once as needed for Migraine. added in this encounter Care Teams Service Counselor Relationship Specialty Start Date End Date Kathy Valera MD [address] [place] [address] PCP - General 12/10/09 documented as of this encounter
--- OUTSIDE RECORDS SUMMARY | 2024-08-16 12:30 | XMS_ITS | Encounter Summary ---
Author Organization [facility] Address [address] [place] [address] Care Team Providers Care Frothing Machine Operator Name Role Phone Kathy Valera MD Primary Care Provider [phone] Reason for Visit * Reason Comments Follow-up 9 month check up vernon miller, says he's doing well. Encounter Details Date Type Department Care Team (Latest Contact Info) Description 05/03/2011 16:00 EDT Office Visit [facility] Cardiology - [address] [address] Dayton Villalta MD [address] [place] [address] [address] [place] [address] Aortic valve disorders; Dilated cardiomyopathy ([facility]) Social History Tobacco Use Types Packs/Day Years [...] Sign Reading Time Taken Comments Blood Pressure 102/82 05/03/2011 1550 EDT Pulse 76 05/03/2011 1550 EDT Temperature - - Respiratory Rate - - Oxygen Saturation 98% 05/03/2011 1550 EDT Inhaled Oxygen Concentration - - Weight 69.9 kg (154 lb) 05/03/2011 1550 EDT Height 180.3 cm (5' 11) 05/03/2011 1550 EDT Body Mass Index 21.48 05/03/2011 1550 EDT documented in this encounter Progress Notes * Dayton Villalta MD - 05/18/2011 1153 EDT RE: NAME: GUERA NORWOOD : 1985 PROGRESS/FOLLOWUP NOTE - 05/03/2011 Kathy Valera MD [address], [address] [place] [address] Dear Kathy: On 05/03/2011, I had the pleasure of seeing Guera Norwood in followup in our cardiology office. Whitney a delightful 25-year-old young man who has a history of a congenital bicuspid aortic valve and severe aortic insufficiency. He underwent aortic valve replacement in March of 2001. A [address] Greg mechanical prosthesis was placed at that time and Guera has been maintained on warfarin. Because of the aortic insufficiency, Guera had a dilated cardiomyopathy. About 18 months ago, an echocardiogramdocumented left ventricular ejection fraction of 35% to 40%. At that time, I decided to treat Gueraaggressively with beta blockers and AMADOR inhibitors. He is now taking Toprol-XL 100 mg daily and marleen nopril 20 mg daily. He comes in today feeling extremely well and denies all cardiovascular symptoms. In fact, he says that he feels better than he did in the past. Objective: Well-appearing, very pleasant gentleman. Blood pressure 102/82, heart rate 76 (regular),oxygen saturation 98% on room air at rest, weight 154 pounds, height 71 inches, BMI 21.5. HEENT: Anicteric sclera, normal conjunctiva. Lungs clear to auscultation bilaterally with good air movement. Cardiovascular: No jugular venous distention. Auscultation: Normal first heart sound. There is a 2/6early-peaking systolic ejection murmur audible along the left sternal border. The second heart sound is mechanical and crisp. There was no diastolic murmur. Extremities: No clubbing, cyanosis or edema. Echocardiogram: The left ventricle was mildly dilated with an end-diastolic dimension of approximately 63 mm. His ejection fraction was approximately 50%. His prosthetic aortic valve appears to function well. Assessment and Plan: I could not be happier with the improvement in Guera's ventricular function. His ejection fraction is now approximately 50%. His ventricle looked much better than it did about 18months ago. Guera will continue on Toprol-XL 100 mg daily, lisinopril 20 mg daily and warfarin to maintain an INR between 2 and 3. There should always be a low threshold to obtain blood cultures for an unexplained febrile illness.I once again reinforced the notion that Guera should brush his teeth at least twice daily, floss his teeth on a daily basis and see a dentist/hygienist twice a year. I plan to see him back in 18 months. Please contact me if you have questions or concerns. Sincerely, Electronically Signed by Dayton Villalta MD, [facility] 05/18/2011 11:53 Dayton Villalta MD, [facility] - Dayton Villalta MD, [facility] - CD Job ID: SM Doc ID: [id number] Ext Doc ID: [id number] cc: Kathy Valera MD * Dayton Villalta MD - 05/03/2011 1625 EDT This office note has been dictated. documented in this encounter Plan of Treatment Not on file documented as of this encounter Visit Diagnoses Diagnosis Aortic valve disorders Dilated cardiomyopathy ([facility]) Other primary cardiomyopathies documented in this encounter Care Teams Frothing Machine Operator Relationship Specialty Start Date End Date Kathy Valera MD [address] [place] [id number] PCP - General 12/10/09 documented as of this encounter
--- OUTSIDE RECORDS SUMMARY | 2024-08-16 12:30 | XMS_ITS | Referral Summary ---
Author Organization [facility] Address [address] [place] [address] Care Team Providers Care Drapery Head Former Name Role Phone Kathy Valera MD Primary Care Provider [phone] Allergies No known active allergies Medications Medication Sig Dispensed Refills Start Date End Date Status WARFARIN SODIUM (COUMADIN ORAL) Take by mouth. As directed Active sumatriptan (IMITREX) 50 mg tablet Take 50 mg by mouth once as needed for Migraine. Active metoprolol XL (TOPROL XL) 200 mg tablet Take 1 Tab by mouth daily. 90 Tab 3 11/19/2013 Active losartan (COZAAR) 100 mg tablet Take 1 Tab by mouth daily. 90 Tab 3 03/06/2018 Active amoxicillin (AMOXIL) 500 mg capsule Take 4 capsules (2000 mg) 1 hour before your dental appointment 8 Cap 4 03/06/2018 Active Active Problems Problem Noted Date Diagnosed Date Bicuspid aortic valve 03/09/2010 Overview: history of a congenital bicuspid aortic valve and underwent aortic valve replacement in March of 2001, with a [address] Greg mechanical prosthesis. The surgery was done because of severe aortic insufficiency and left-ventricular dysfunction Status post aortic valve replacement 03/05/2010 Overview: St. Greg mechanical prosthesis Social History Tobacco Use Types Packs/Day Years [...] on file Sexual Orientation Not on file Last Filed Vital Signs Vital Sign Reading Time Taken Comments Blood Pressure 102/70 03/06/2018 1449 EDT Pulse 60 03/06/2018 1449 EDT Temperature - - Respiratory Rate - - Oxygen Saturation 97% 03/06/2018 1449 EDT Inhaled Oxygen Concentration - - Weight 73.5 kg (162 lb) 03/06/2018 1449 EDT Height 180.3 cm (5' 11) 03/06/2018 1449 EDT Body Mass Index 22.59 03/06/2018 1449 EDT Functional Status Functional Status Response Date of [...] concentrating, remembering, or making decisions? No 03/06/2018 Plan of Treatment Not on file Care Teams Drapery Head Former Relationship Specialty Start Date End Date Kathy Valera MD [address] [place] [id number] PCP - General 12/10/09
--- OUTSIDE RECORDS SUMMARY | 2024-08-16 12:30 | XMS_ITS | Encounter Summary ---
Author Organization [facility] Address [address] [place] [address] Care Team Providers Care Rolling Machine Operator Name Role Phone Kathy Valera MD Primary Care Provider [phone] Reason for Visit * Reason Comments Aortic Stenosis * Consult (Routine) - Closed Specialty Diagnoses / Procedures [facility] Card[facility] Diagnoses Presence of prosthetic heart valve Kathy Valera MD [address] [place] [address] [facility] Cardiology [address] [place] [address] [place] [address] Referral ID Status Reason Start Date Expiration Date Visits Re quested Visits Authorized [id number] Closed 1 1 Encounter Details Date Type Department Care Team (Late st Contact Info) Description 03/06/2018 15:00 EDT Office Visit [facility] Cardiology - [address] [place] [address] Dayton Villalta MD [address] [place] [address] [address] [place] [address] Aortic valve disorder (Primary Dx); Adult congenital [...] Body Mass Index 22.59 03/06/2018 1449 EDT documented in this encounter Functional Status Functional Status Response [...] No 03/06/2018 documented as of this encounter Ordered Prescriptions Prescription Sig Dispensed Refills Start Date End Da te amoxicillin (AMOXIL) 500 mg capsule Take 4 capsules (2000 mg) 1 hour before your dental appointment 8 Cap 4 03/06/2018 losartan (COZAAR) 100 mg tablet Take 1 Tab by mouth daily. 90 Tab 3 03/06/2018 documented in this encounter Progress Notes * Dayton Villalta MD - 03/06/2018 1515 EDT This office note has been dictated. * Dayton Villalta MD - 03/06/2018 0000 EDT THE CARDIOLOGY PROGRESS / FOLLOWUP NOTE - 03/06/2018 Kathy Valera MD [address], [address] [place] [address] Dear Kathy, On 03/06/2018, I had the pleasure of seeing Abilio Ricci in our clinic for adults with congenital heart disease at the [facility]. Abilio is a 32-year-old young man with a history of congenital aortic valve disease. Specifically, Abilio had a bicuspid aortic valve with associated severe aortic regurgitation. In the setting of his severe aortic regurgitation, Abilio had a dilated and dysfunctional left ventricle. In March 2001, he underwent open heart surgery consisting of replacement of his aortic valve with a [address] Greg mechanical prosthesis. Abilio did not have a bicuspid aortopathy (aneurysmal dilatation of his ascending aorta). I have been taking care of Abilio since approximately 2005. On 12/22/2009, an echocardiogram revealed significant left ventricular dysfunction. Abilio's ejection fraction was 35 to 40%. At that time, I started aggressive therapy with AMADOR inhibitor (lisinopril 20 mg daily) and a beta loc (Toprol-XL 100 mg daily). Abilio felt better after initiation of medical therapy and his left ventricular function improved. I last saw Abilio on 11/19/2013. He was supposed to return after a 2-year interval! During that visit, he noted episodes of tachypalpitations, which sounded like they may be supraventricular tachycardia. We increased his Toprol- XL from 100 to 200 mg daily and Abilio now notes that he has a rare limited episode of tachypalpitations. He denies chest pain or pressure, shortness of breath, PND, orthopnea, syncope and pedal edema. Abilio tells me that his INR is generally in a good range. He has had no bleeding issues. 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 He knows to be extremely careful. Family History: We now know that bicuspid aortic valves often have an autosomal dominant inheritance pattern. Abilio has 2 children, both of which have been evaluated for a bicuspid valve and do not have one. None of his siblings are known to have a bicuspid aortic valve, but it is unclear how well they have been evaluated. Review of Systems: Abilio is seeing a dentist twice a year. He is taking amoxicillin 2000 mg 1 hour before the dental appointments. He is good about brushing his teeth, but not about flossing. He has no history of endocarditis. Abilio notes that he often has a feeling of nasal congestion but has not had a cough. He wonders if the lisinopril could be causing the nasal congestion; I will address thisfurther below. Medications: Lisinopril 20 mg daily. Toprol-XL 200 mg daily. Warfarin as directed. Imitrex p.r.n. Amoxicillin 2000 mg 1 hour before dental visits. Allergies: No known medication allergies. Objective: A pleasant gentleman who appears quite healthy. Vitals: Blood pressure 102/70, heart rate 60 (regular), oxygen saturation 97% on room air. Weight 162 pounds, height 71 inches and BMI 22.6.HEENT: Anicteric sclerae, normal conjunctivae, normal mucous membranes. Neck: Normal size. Lungs: Clear to auscultation bilaterally with good air movement. There were no wheezes or crackles. Cardiovascular: No jugular venous distention. Carotids: Normal upstroke and volume. Palpation: Nondisplaced apical impulse. Auscultation: Normal 1st heart sound followed by 2/6 ejection murmur heard along theleft sternal border and at the base of the heart. The 2nd heart sound was mechanical and crisp. There was no diastolic murmur. Abdomen: Soft and nontender, without hepatosplenomegaly. Extremities: Noclubbing, cyanosis or edema. Bilateral radial pulses were normal. Diagnostic Testing: Echocardiogram: I reviewed the entire study. The left ventricle size is at the upper limits of normal. The systolic function was normal with an ejection fraction of about 55%. There was paradoxical septal motion secondary to previous open heart surgery. Right ventricular size and function were normal. Both atria were normal. The mitral, tricuspid and pulmonic valves were all normal. A mechanical prosthesis was present in the aortic position. The peak instantaneous and mean gradients were 39 and27 mmHg (unchanged). There was no aortic regurgitation. There was no evidence of pulmonary hypertension, but a pressure could not be measured. The IVC was normal, consistent with a normal right atrial pressure. Assessment and Plan: Abilio Ricci is a 32-year-old gentleman with a history of congenital aortic valve disease. Specifically, he had a bicuspid aortic valve with associated severe regurgitation. He has done well status post aortic valve replacement in 2000. Currently, left ventricular size is at the upper limits of normal and left ventricular systolic function is normal. He has come a long way since the addition of AMADOR inhibitors and beta blockers to his regimen. With the increased beta loc dose, he has not hadany significant tachypalpitations. Abilio feels a sense of nasal congestion on a regular basis. It may very well be that it is allergies. However, I did discontinue his lisinopril and gave him a prescription for losartan 100 mg daily. I also renewed his prescription for amoxicillin as antibiotic prophylaxis prior to dental visits. I congratulated him on seeing a dentist twice a year and asked him to try to start flossing on a regular basis. Good oral hygiene will reduce his risk of prosthetic valve endocarditis. Abilio's echo today showed stable prosthetic aortic valve function. We should continue with an INR goal between 2 and 3; 2.5 is the optimal target. I plan to see Abilio back in 3 years. We will perform an echocardiogram at that visit. I would be delighted to see him sooner if needed. Please feel free to contact me with any questions or concerns. Sincerely, Dayton Villalta MD Note: I spent 35 minutes evaluating Abilio ricci (25 minutes [id number]), greater than 50% of which was spent in discussion/counseling related to his aortic valve disease. 03 36 PM - Dayton Villalta MD jn Dictation ID: [id number] cc: Kathy Valera MD, [address] [address] documented in this encounter Plan of Treatment Not on file documented as of this encounter Visit Diagnoses Diagnosis Aortic valve disorder- Primary Aortic valve disorders Adult congenital heart disease Unspecified congenital anomaly of heart documented in this encounter Discontinued Medications Medication Sig Discontinue Reason Start Date End Da te lisinopril (PRINIVIL, ZESTRIL) 20 mg tablet Take 1 Tab by mouth daily. Alternate therapy 11/19/2013 03/06/2018 documented as of this encounter Care Teams Rolling Machine Operator Relationship Specialty Start Date End Date Kathy Valera MD [address] [place] [address] PCP - General 12/10/09 documented as of this encounter
--- OUTSIDE RECORDS SUMMARY | 2024-08-16 12:30 | XMS_ITS | Encounter Summary ---
Author Organization [facility] Address [address] [place] [address] Care Team Providers Care Director Chemistry Name Role Phone Unavailable Primary Care Provider Unavailabl e Encounter Details Date Type Department Care Team (Late st Contact Info) Description 04/11/2001 10:06 EDT Hospital Encounter [facility] [address] [place] [address] Jose Bejarano MD [address] [address] Social History Tobacco Use Types [...] Procedure Name Priority Date/Time Associated Diagnosis Comments PLATELET FUNCTION ASSAY/ANALYSIS Routine 04/11/2001 10:05 EDT documented in this encounter Results * PLATELET FUNCTION ASSAY/ANALYSIS (04/11/2001 10:05 EDT) COL/EPI Cartridge 130 94 - 193 secs [facility] Comment: Platelet function results with closure times within or below the reference range are consistent with normal platelet function. NOTE: ??PLT Funct Analysis replaces the Bleeding Time 04/11/2001 10:0 5 EDT 04/11/2001 10:14 EDT Jose Bejarano MD HEMATOLOGY & PF4 OR CHARIS Performing Organization Address City/State/[facility] Co de Phone Number [facility] [address] [address] documented in this encounter Visit Diagnoses Not on filedocumented in this encounter
--- OUTSIDE RECORDS SUMMARY | 2024-08-16 12:30 | XMS_ITS | Encounter Summary ---
Author Organization [facility] Address [address] [place] [address] Care Team Providers Care Real Estate Professional Name Role Phone Unavailable Primary Care Provider Unavailabl e Encounter Details Date Type Department Care Team (Late st Contact Info) Description 05/31/2006 Before PRISM Converted Visit (Maple) [facility] - Maple conversion [address] [place] [address] Dayton Villalta MD [address] [place] [address] [address] [place] [address] Social History Tobacco Use Types Packs/Day Years Used Date Smoking Tobacco: Never Assessed Sex and Gender Information Value Date Recorded Sex Assigned at Not on file Gender Identity Not on file Sexual Orientation Not on file documented as of this encounter Progress Notes * Dayton Villalta MD - 10/16/2009 0558 EST May 31, 2006 Alicia Lee NP [facility] [address] [place] [address] Dear Alicia, On May 31, 2006 I had the pleasure of seeing Abilio Ricci in the cardiology office. As you know, he has a history of a congenital bicuspid aortic valve and underwent aortic valve replacement in March of 2001, with a [address] Greg mechanical prosthesis. The surgery was done because of severe aortic insufficiency and left-ventricular dysfunction. Since that time Abilio has done well, although he has had some residual left-ventricular dysfunction. He comes in today feeling great. He has no cardiovascular complaints. He continues to take lisinopril 10mg daily, Coumadin as directed and Toprol XL 25 mg daily. He claims he does use SBE prophylaxis. He denies any fevers, chills or sweats. Physical exam today is unremarkable. His blood pressure was normal at 104/60, heart rate 90 and oxygen saturation 97%. Lungs were clear to auscultation. He has a well healed midline sternotomy scar with a 1/6 early-peaking systolic murmur, as well as mechanical second heart sound. Extremities do not reveal any cyanosis, clubbing or edema. Abilio had a stress echocardiogram today. He exercised into stage V of a Standard Zafar Protocol, going 12 minutes and 50 seconds. I am pleased to say the he did have augmentation of left-ventricular function. At baseline his ejection fraction is approximately 45% with mild LV dilatation. His aorticvalve prosthesis appears to be functioning well. I continued Abilio on his current medical regimen. I plan to see him back in two years, at which time we will repeat a stress echocardiogram. There should always be a low threshold to obtain blood cultures for a febrile illness. I would be delighted to see Elvis in the interim should any issues arise. Please contact me if you have questions or concerns. Sincerely, Signed by Dayton Villalta MD, FACC 06/06/2006 16:47 Aries Villalta MD, FACDayton Villalta MD, [facility] Dayton Villalta MD, FACC - Dayton Villalta MD, FACC A - DSP Job ID: [id number] Document ID: [id number] cc: Alicia Lee NP documented in this encounter Plan of Treatment Not on file documented as of this encounter Visit Diagnoses Not on filedocumented in this encounter
--- OUTSIDE RECORDS SUMMARY | 2024-08-16 12:30 | XMS_ITS | Encounter Summary ---
Author Organization [facility] Address [address] [place] [address] Care Team Providers Care Lettuce Trimmer Name Role Phone Unavailable Primary Care Provider Unavailabl e Encounter Details Date Type Department Care Team (Late st Contact Info) Description 04/04/2001 13:14 EDT Hospital Encounter [facility] [address] [place] [address] Jose Bejarano MD [address] [address] Social History Tobacco Use Types [...] Procedure Name Priority Date/Time Associated Diagnosis Comments URINALYSIS WITH MICROSCOPIC IF POSITIVE Routine 04/04/2001 16:02 EDT UA REFLEX Routine 04/04/2001 16:02 EDT CREATININE Routine 04/04/2001 16:01 EDT POTASSIUM Routine 04/04/2001 16:01 EDT documented in this encounter Results * UA REFLEX (04/04/2001 16:02 EDT) UA Billing Microscopic not indicated. [facility] 04/04/2001 16:0 2 EDT 04/04/2001 16:21 EDT Jose Bejarano MD URINALYSIS ORDERABL ES Performing Organization Address [facility] de Phone Number [facility] [address] [place] [address] * (ABNORMAL) URINALYSIS (04/04/2001 16:02 EDT) Color, UA Yellow [facility] Clarity, UA Clear [facility] Glucose, UA Norm NORM [facility] Bilirubin, UA Neg NEG [facility] Ketones, UA Neg NEG [facility] Specific [place], Urine 1.015 1.005 - 1.02 [facility] Blood, UA Neg NEG [facility] pH, UA 6.0 5.0 - 9.0 [facility] Protein, UA Trace(A) NEG [facility] Urobilinogen, UA Norm NORM mg/dL [facility] Nitrite, UA Neg NEG [facility] Leuk Esterase Neg NEG [facility] 04/04/2001 16:0 2 EDT 04/04/2001 16:21 EDT Jose Bejarano MD URINALYSIS ORDERABL ES Performing Organization Address [facility] Phone Number [facility] [address] [place] [address] * POTASSIUM (04/04/2001 16:01 EDT) Potassium 4.1 3.6 - 5.2 mEq/L [facility] 04/04/2001 16:0 1 EDT 04/04/2001 16:21 EDT Jose Bejarano MD CHEMISTRY & BLOOD G ORDERABLES Performing Organization Address [facility] de Phone Number [facility] [address] [place] [address] * CREATININE (04/04/2001 16:01 EDT) Creatinine 0.8 0.6 - 1.2 mg/dl [facility] 04/04/2001 16:0 1 EDT 04/04/2001 16:21 EDT Jose Bejarano MD HISTORICAL LAB FOR SQ LOAD [facility] [address] [place] [address] documented in this encounter Visit Diagnoses Not on filedocumented in this encounter
--- OUTSIDE RECORDS SUMMARY | 2024-08-16 12:30 | XMS_ITS | Encounter Summary ---
Author Organization [facility] Address [address] [place] [address] Care Team Providers Care Strip Polisher Name Role Phone Unavailable Primary Care Provider Unavailabl e Encounter Details Date Type Department Care Team (Late st Contact Info) Description 03/10/2003 14:04 EDT Hospital Encounter [facility] [address] [place] [address] Dayton Villalta MD [address] [place] [address] [place] [address] Social History Tobacco Use Types Packs/Day [...]
--- OUTSIDE RECORDS SUMMARY | 2024-08-16 12:30 | XMS_ITS | Encounter Summary ---
Author Organization [facility] Address [address] [place] [address] Care Team Providers Care Histology Aide Name Role Phone Unavailable Primary Care Provider Unavailabl e Encounter Details Date Type Department Care Team (Latest Contact Info) Description 05/31/2006 10:19 EDT - 05/31/2006 11:[address] [facility] [address] [place] [address] Jose Bejarano MD [address] [place] [address] Discharge Disposition: Auto Discharge Social History Tobacco [...]
--- OUTSIDE RECORDS SUMMARY | 2024-08-16 12:30 | XMS_ITS | Encounter Summary ---
Author Organization [facility] Address [address] [place] [address] Care Team Providers Care Cork Molder Name Role Phone Kathy Valera MD Primary Care Provider [phone] Encounter Details Date Type Department Care Team ([facility] st Contact Info) Description 03/07/2002 Results Only [facility] - Maple conversion [address] [place] [address] Kathy Valera MD [address] [place] [id number] Social History Tobacco Use Types Packs/Day Years Used Date Smoking Tobacco: Never Assessed Sex and Gender Information Value Date Recorded Sex Assigned at Not on file Gender Identity Not on file Sexual Orientation Not on file documented as of this encounter Plan of Treatment Not on file documented as of this encounter Procedures Procedure Name Priority Date/Time Associated Diagnosis Comments SURGICAL PATHOLOGY Routine 03/07/2002 0:00 EDT documented in this encounter Results * SURGICAL PATHOLOGY (03/07/2002 0:00 EDT) Pathology Report: SURGICAL PATHOLOGY REPORT Reports generated via electronic interface contain original data; however they are lacking the format of the original report. Caution should be taken when reading/interpreti ng unformatted reports. Name: ? GUERA NORWOOD ? Accession #: ? [id number] ? : ? 1985 (Age: 16) ??M ? Collect Date: ? 03/07/2002 ? Location: ? [facility] ? Receive Date: ? 03/08/2002 ? Provider: KATHY VALERA MD Copy to: KAE CORTÉS MD ? Final Pathologic Diagnosis: ? Skin of back, mid, shave biopsy: 1. ??Melanocytic nevus, compound type, with mild cytologic atypia and architectural disorder. ? - ??Completely excised. Document reviewed and electronically signed by: Robbin Meadows MD Report ??Date: 03/12/2002 16:03 By the signature above, the attending physician certifies that he/she has personally conducted a gross and/or microscopic examination of the described specimens and rendered or confirmed the above diagnosis. Specimen(s) Received: ? Nevus on mid back ??asymmetrical, 2 tiny approximately 8 mm Clinical History: ? Clinical diagnosis code: 113.85 Gross Description: ? Received in formalin labelled Norwood and nevus back is an elliptical excision of skin measuring 1.2 x 0.7 x 0.6 cm. ??A vicente-rodriguez macule is identified on the cutaneous surface measuring 0.3 cm in maximum dimension. The resection margin is black inked. The specimen is serially sectioned and entirely submitted as (A1) ??(A3), (A3) containing two tips. ??(Dr. Napier)/[facility] End of Report [facility] 03/07/2002 03/08/2002 15: 23 EDT Kathy Valera MD PATHOLOGY ORDERABLES [facility] [address] [place] [address] documented in this encounter Visit Diagnoses Not on filedocumented in this encounter Care Teams Cork Molder Relationship Specialty Start Date End Date Kathy Valera MD [address] [place] [address] PCP - General 12/10/09 documented as of this encounter
--- OUTSIDE RECORDS SUMMARY | 2024-08-16 12:30 | XMS_ITS | Encounter Summary ---
Author Organization [facility] Address [address] [place] [address] Care Team Providers Care Automobile Seat Cover Installer Name Role Phone Kathy Valera MD Primary Care Provider [phone] Reason for Visit * Reason Onset Date Comments Appointment Related 11/29/2022 Encounter Details Date Type Department Care Team (Late st Contact Info) Description 11/29/2022 Telephone [facility] Cardiology - [address] [place] [address] Dayton Villalta MD [address] [place], [place] [address]ey [facility] [address] [place] [address] Appointment Related Social History Tobacco Use Types Packs/Day Years [...] No 03/06/2018 documented as of this encounter Miscellaneous Notes * Telephone Encounter - Richard Brothers - 11/29/2022 1627 EST Called patient to inform that we are postponing 12/06/22 appt, as we were waiting for the results of the missed 11/24/22 appt. Left our office phone number to call and have these appts rescheduled. Bree has been sent out to reschedule the 11/24/22 missed Echo appt as well. documented in this encounter Plan of Treatment Not on file documented as of this encounter Visit Diagnoses Not on filedocumented in this encounter Care Teams Automobile Seat Cover Installer Relationship Specialty Start Date End Date Kathy Valera MD [address] [place] [address] PCP - General 12/10/09 documented as of this encounter
--- OUTSIDE RECORDS SUMMARY | 2024-08-16 12:30 | XMS_ITS | Encounter Summary ---
Author Organization [facility] Address [address] [place] [address] Care Team Providers Care Director Of Product Management Name Role Phone Unavailable Primary Care Provider Unavailabl e Encounter Details Date Type Department Care Team (Late st Contact Info) Description 07/19/2005 8:02 EDT Hospital Encounter [facility] - Maple conversion [address] [place] [address] Dayton Villalta MD [address] [place] [address] [address] [place] [address] Social History Tobacco Use Types [...]
--- OUTSIDE RECORDS SUMMARY | 2024-08-16 12:30 | XMS_ITS | Encounter Summary ---
Author Organization [facility] Address [address] [place] [address] Care Team Providers Care Willow Machine Tender Name Role Phone Unavailable Primary Care Provider Unavailabl e Encounter Details Date Type Department Care Team (Latest Contact Info) Description 05/30/2001 14:27 EDT Hospital Encounter [facility] [address] [place] [address] Richard Gomes MD [address] [place] [id number] Discharge Disposition: Auto Discharge Social History [...] Priority Date/Time Associated Diagnosis Comments PROTIME Routine 05/30/2001 14:16 EDT documented in this encounter Results * (ABNORMAL) PROTIME (05/30/2001 14:16 EDT) Pro Time 16.7(H) 11.3 - 13.1 secs [facility] Comment:Patient on Coumadin I.N.R. 1.9(H) 0.8 - 1.2 Ratio [facility] Comment: Moderate Intensity Coumadin INR = 2.0-3.0 Adjustments in anticoagulant therapy dose should be based upon the INR and NOT the Pro Time. Patient on Coumadin 05/30/2001 14:1 6 EDT 05/30/2001 14:26 EDT Richard Gomes MD HEMATOLOGY & PF4 ORD ERABLES [facility] Organization Address City/State/[facility] Co de Phone Number [facility] [address] [place] [address] documented in this encounter Visit Diagnoses Not on filedocumented in this encounter
--- OUTSIDE RECORDS SUMMARY | 2024-08-16 12:30 | XMS_ITS | Clinical Summary ---
Author Organization [facility] Address [address] [place] [address] Care Team Providers Care Fiction Writer Name Role Phone Kathy Valera MD Primary Care Provider [phone] Allergies No known active allergies Medications Medication [...] on file Sexual Orientation Not on file Obstetrics History Last Filed Vital Signs Vital Sign Reading Time Taken Comments Blood Pressure 102/70 03/06/2018 1449 EDT Pulse 60 03/06/2018 1449 EDT Temperature - - Respiratory Rate - - Oxygen Saturation 97% 03/06/2018 1449 EDT Inhaled Oxygen Concentration - - Weight 73.5 kg (162 lb) 03/06/2018 1449 EDT Height 180.3 cm (5' 11) 03/06/2018 1449 EDT Body Mass Index 22.59 03/06/2018 1449 EDT Plan of Treatment Health Maintenance Due Date Last Done Comments Hepatitis C Screen 1985 Hepatitis B Vaccine (1 of 3 - 19+ 3-dose series) 08/25 COVID-19 Vaccine (2022- season) 2023 Care Teams Fiction Writer Relationship Specialty Start Date End Date Kathy Valera MD [address] [place] [id number] PCP - General 12/10/09
--- OUTSIDE RECORDS SUMMARY | 2024-08-16 12:30 | XMS_ITS | Encounter Summary ---
Author Organization [facility] Address [address] [place] [address] Care Team Providers Care Supervisor [employer] Name Role Phone Kathy Valera MD Primary Care Provider [phone] Reason for Visit * Reason Onset Date Comments Appointment Related 11/06/2013 needs to res chedule upcoming appt Encounter Details Date Type Department Care Team (Late st Contact Info) Description 11/06/2013 Telephone [facility] Cardiology - [address] [place] [address] Dayton Villalta MD [facility] [address] [place] [address] Appointment Related (needs to reschedule upcoming appt) Social History Tobacco Use Types Packs/Day Years [...] encounter Miscellaneous Notes * Telephone Encounter - Rosalva Ardon RN - 11/06/2013 1525 EST Annalisa Fernandez aware and will call pt * Telephone Encounter - Deborah Kovacs - 11/06/2013 1502 EST Pt spouse requesting call back in regards to needing to reschedule 11/19 w/Dr. Villalta documented in this encounter Plan of Treatment Not on file documented as of this encounter Visit Diagnoses Not on filedocumented in this encounter Care Teams Supervisor [employer]ing Relationship Specialty Start Date End Date Kathy Valera MD [address] [place] [id number] PCP - General 12/10/09 documented as of this encounter
--- OUTSIDE RECORDS SUMMARY | 2024-08-16 12:30 | XMS_ITS | Encounter Summary ---
Author Organization [facility] Address [address] [place] [address] Care Team Providers Care Hydro Electric Station Operator Name Role Phone Kathy Valera MD Primary Care Provider [phone] Reason for Visit * Reason Comments Cardiac Testing * Cardiology (Routine) - Closed Specialty Diagnoses / Procedures Referred By [facility] Referred To Contact Diagnoses Bicuspid aortic valve Procedures ECHOCARDIOGRAM Dayton Villalta MD [address] [place] [address] Referral ID Status Reason Start Date Expiration Date Visits Re quested Visits Authorized [id number] Closed 02/22/2018 1 1 Encounter Details Date Type Department Care Team (Latest Contact Info) Description 03/06/2018 14:00 EDT Procedure visit [facility] Cardiology - [facility] [address] [facility] [place] [address] Dayton Villalta MD [address] [place] [address] Vilma Ramirez Discharge Disposition: Auto Discharge Social History Tobacco [...] No 03/06/2018 documented as of this encounter Discharge Diagnoses Diagnosis 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
[2024-08-16 14:33] LABS: Anion Gap 7.7 mmol/L (3-11); BUN 14 mg/dL (7-18); CO2 28.3 mmol/L (21.0-32.0); CREATININE 0.9 mg/dL (0.70-1.30); Calcium 9.1 mg/dL (8.5-10.1); Chloride 105 mmol/L (98-107); Estimated GFR 112.11 (mL/min/1.73m2); Glucose 116 mg/dL (74-106); Potassium 4.2 mmol/L (3.5-5.1); Sodium 141 mmol/L (136-145)
== END 2024-08-16 12:29 | disposition home or self-care (01) ==
LOC: NCHCN 12:28
PROVIDERS: PCP Family Medicine; Visit Provider Family Medicine
DX: I42.0 Dilated cardiomyopathy (principal)
CPT/HCPCS: 80048